=== PATIENT | male | born 1950 | race Caucasian/White ===

== ENCOUNTER 2023-08-15 09:22 | Emergency (ER) | payer SELFPAY ==
[~2023-08-15] VITALS: Ht 193 cm; Wt 54.8 kg
[~2023-08-15 09:22] MED LIST: BENZ0.5T36 PO; BENZ1TAB78 PO; CITA-311 PO; DIVA-81 PO; DIVA500T9 PO; NICO-687 TD; PALI234D IM; RISP4TAB49 PO
[2023-08-15 09:44] VITALS: BP 104/62; PULSE 73; RESP 16; TEMP 98.8; O2SAT 97
[2023-08-15] MEDS ORDERED: mupirocin 2% ointment 22GM TP STA (10:08)
[2023-08-16] MEDS ORDERED: DOXY100C77 PO (23:19)
[2023-08-16] MEDS ORDERED: CEPH250T PO (23:19)
== END 2023-08-15 10:37 | disposition home or self-care (01) ==
LOC: ER 09:22
DX: S60.921A Unspecified superficial injury of right hand, initial encounter (principal); J44.9 Chronic obstructive pulmonary disease, unspecified; F31.9 Bipolar disorder, unspecified; Z79.899 Other long term (current) drug therapy; X58.XXXA Exposure to other specified factors, initial encounter; Y93.89 Activity, other specified; Y92.89 Other specified places as the place of occurrence of the external cause; Y99.8 Other external cause status
CPT/HCPCS: 99282; A6449

== ENCOUNTER 2023-08-16 00:22 | Emergency (ER) | payer SELFPAY ==
[~2023-08-16] VITALS: Ht 172.7 cm; Wt 51.6 kg
[2023-08-16 00:39] VITALS: BP 129/64; PULSE 66; RESP 18; TEMP 98.8; O2SAT 97
[2023-08-16] MEDS ORDERED: DOXYCYCLINE 100MG CAPSULE PO ONE (01:20)
--- NOTE | 2023-08-16 01:28 | NUR ---
Blood draw performed on patient.
--- NOTE | 2023-08-16 01:38 | NUR ---
Bactroban from previous ER visit applied. Nonadherent dressing placed and secured with Koban.
[2023-08-16 02:20] LABS: SYPHILIS SCREENING TEST POC NEGATIVE (Negative)
[2023-08-16] MEDS ORDERED: DOXY100C77 PO (23:19)
[2023-08-16] MEDS ORDERED: CEPH250T PO (23:19)
== END 2023-08-16 03:30 | disposition home or self-care (01) ==
LOC: ER 00:23
DX: L03.012 Cellulitis of left finger (principal); J44.9 Chronic obstructive pulmonary disease, unspecified; F31.9 Bipolar disorder, unspecified; Z79.899 Other long term (current) drug therapy
CPT/HCPCS: 36415; 86592; 99283; A6258

== ENCOUNTER 2023-08-16 22:05 | Emergency (ER) | payer SELFPAY ==
[~2023-08-16] VITALS: Ht 172.7 cm; Wt 72.7 kg
[2023-08-16 22:24] VITALS: BP 142/79; PULSE 75; RESP 16; TEMP 98; O2SAT 98
--- NOTE | 2023-08-16 22:33 | NUR ---
REMOVED OLD BANDAGE, HAD HIM WASH HIS HANDS IN THE SINK. FRESH 4X4 AND COBAN APPLIED.
[2023-08-16] MEDS ORDERED: CEPH250T PO (23:19)
[2023-08-16] MEDS ORDERED: DOXYCYCLINE 100MG CAPSULE PO STA (23:19)
[2023-08-16] MEDS ORDERED: DOXY100C77 PO (23:19)
[2023-08-16] MEDS ORDERED: cephalexin 250mg capsule PO ONE (23:20)
== END 2023-08-16 23:37 | disposition home or self-care (01) ==
LOC: ER 22:05
DX: L98.498 Non-pressure chronic ulcer of skin of other sites with other specified severity (principal)
CPT/HCPCS: 99283

== ENCOUNTER 2023-08-18 05:18 | Emergency (ER) | payer MEDICARE ==
[~2023-08-18] VITALS: Ht 177.8 cm; Wt 73.6 kg
[~2023-08-18 05:18] MED LIST changes: +CEPH250T PO; +DOXY100C77 PO
--- NOTE | 2023-08-18 05:29 | NUR ---
CALLED FOR PATIENT IN LOBBY, NO ANSWER.
[2023-08-18 05:54] VITALS: BP 124/85; PULSE 65; RESP 16; TEMP 98.3; O2SAT 97
== END 2023-08-18 08:15 | disposition left against medical advice (07) ==
LOC: ER 05:18
DX: M25.532 Pain in left wrist (principal); Z53.21 Procedure and treatment not carried out due to patient leaving prior to being seen by health care provider
CPT/HCPCS: 99281

== ENCOUNTER 2023-08-18 09:09 | Emergency (ER) | payer SELFPAY ==
[~2023-08-18] VITALS: Ht 172.7 cm; Wt 72.7 kg
[2023-08-18 09:23] VITALS: BP 124/71; PULSE 95; RESP 19; O2SAT 99
== END 2023-08-18 17:29 | disposition left against medical advice (07) ==
LOC: ER 09:10
DX: L02.419 Cutaneous abscess of limb, unspecified (principal); Z53.21 Procedure and treatment not carried out due to patient leaving prior to being seen by health care provider
CPT/HCPCS: 99281

== ENCOUNTER 2023-09-14 14:24 | Emergency (ER) | payer SELFPAY ==
[~2023-09-14] VITALS: Ht 167.6 cm; Wt 56.2 kg
[~2023-09-14 14:24] MED LIST changes: -CEPH250T PO; -DOXY100C77 PO
[2023-09-14 14:34] VITALS: BP 143/69; PULSE 80; RESP 16; TEMP 97.8; O2SAT 98
[2023-09-14] MEDS ORDERED: bacitracin 15gm ointment TP ONE (14:35)
[2023-09-14] MEDS ORDERED: CEPH500C2 PO (14:38)
[2023-09-14] MEDS ORDERED: BACI1PAC7 TOP (14:39)
== END 2023-09-14 16:47 | disposition home or self-care (01) ==
LOC: ER 14:25
DX: L03.114 Cellulitis of left upper limb (principal); J44.9 Chronic obstructive pulmonary disease, unspecified; F31.9 Bipolar disorder, unspecified; Z79.899 Other long term (current) drug therapy
CPT/HCPCS: 99283

== ENCOUNTER 2023-09-15 00:43 | Emergency (ER) | payer MEDICARE ==
[~2023-09-15] VITALS: Ht 172.7 cm; Wt 67.2 kg
[~2023-09-15 00:43] MED LIST changes: +BACI1PAC7 TOP; +CEPH500C2 PO
[2023-09-15 00:44] VITALS: BP 130/76; PULSE 65; RESP 16; TEMP 97.8; O2SAT 100
== END 2023-09-15 02:54 | disposition left against medical advice (07) ==
LOC: ER 00:44
DX: M79.89 Other specified soft tissue disorders (principal); Z53.21 Procedure and treatment not carried out due to patient leaving prior to being seen by health care provider
CPT/HCPCS: 99281

== ENCOUNTER 2023-11-04 16:38 | Emergency (ER) | payer OTHER, MEDICARE ==
[~2023-11-04] VITALS: Ht 172.7 cm; Wt 73.5 kg
[~2023-11-04 16:38] MED LIST changes: -BACI1PAC7 TOP; -CEPH500C2 PO
[2023-11-04 20:07] VITALS: BP 148/80; PULSE 74; RESP 16; TEMP 98.5; O2SAT 100
== END 2023-11-04 20:10 | disposition home or self-care (01) ==
LOC: ER 16:38
DX: M79.642 Pain in left hand (principal); M19.90 Unspecified osteoarthritis, unspecified site; J44.9 Chronic obstructive pulmonary disease, unspecified; Z56.0 Unemployment, unspecified; Z59.00 Homelessness unspecified; Z79.899 Other long term (current) drug therapy
CPT/HCPCS: 29125; 73130; 99283

== ENCOUNTER 2023-11-17 14:35 | Emergency (ER) | payer OTHER, MEDICARE | END 2023-11-17 18:35 | disposition left against medical advice (07) | LOC: ER 14:36 | DX: R21 Rash and other nonspecific skin eruption (principal); Z53.21 Procedure and treatment not carried out due to patient leaving prior to being seen by health care provider ==

== ENCOUNTER 2023-11-19 08:55 | Emergency (ER) | payer MEDICARE, OTHER ==
[~2023-11-19] VITALS: Ht 172.7 cm; Wt 71.6 kg
[2023-11-19 09:01] VITALS: BP 141/69; PULSE 94; RESP 18; O2SAT 96
[2023-11-19] MEDS ORDERED: SULF1TAB49 PO (09:07)
[2023-11-19] MEDS ORDERED: CEPH-585 PO (09:07)
[2023-11-19 09:14] VITALS: TEMP 98.5
== END 2023-11-19 09:18 | disposition home or self-care (01) ==
LOC: ER 08:55
DX: L03.114 Cellulitis of left upper limb (principal); J44.9 Chronic obstructive pulmonary disease, unspecified; Z56.0 Unemployment, unspecified; Z59.00 Homelessness unspecified; Z79.899 Other long term (current) drug therapy; Z79.2 Long term (current) use of antibiotics
CPT/HCPCS: 99283

== ENCOUNTER 2023-11-21 11:51 | Emergency (ER) | payer OTHER ==
[~2023-11-21 11:51] MED LIST changes: +CEPH-585 PO; +SULF1TAB49 PO
[2023-11-23] MEDS ORDERED: ALBU6.7H14 INH ×3 (16:21→23:25)
== END 2023-11-21 14:08 | disposition left against medical advice (07) ==
LOC: ER 11:52
DX: R05.9 Cough, unspecified (principal); Z53.21 Procedure and treatment not carried out due to patient leaving prior to being seen by health care provider

== ENCOUNTER 2023-11-23 21:56 | Emergency (ER) | payer OTHER, MEDICARE ==
[~2023-11-23] VITALS: Ht 172.7 cm; Wt 70.7 kg
[~2023-11-23 21:56] MED LIST changes: +ALBU6.7H14 INH
[2023-11-23 22:00] VITALS: BP 135/75; TEMP 98.3
[2023-11-23] MEDS ORDERED: ipratropium/albuterol 3ml nebule NEB ONE (23:05)
[2023-11-23 23:16] VITALS: PULSE 74; RESP 18; O2SAT 90
[2023-11-23 23:25] VITALS: PULSE 77; RESP 18; O2SAT 94
[2023-11-23] MEDS ORDERED: ALBU6.7H14 INH (23:25)
[2023-11-23] MEDS ORDERED: SULF1TAB49 PO (23:25)
[2023-11-23] MEDS ORDERED: CEPH-585 PO (23:25)
[2023-11-24] MEDS ORDERED: PRED20TA PO (14:55)
[2023-11-24] MEDS ORDERED: AMOX-117 PO (14:55)
[2023-11-24] MEDS ORDERED: ALBU6.7H14 INH (14:55)
== END 2023-11-23 23:51 | disposition home or self-care (01) ==
LOC: ER 21:57
DX: J06.9 Acute upper respiratory infection, unspecified (principal); R05.9 Cough, unspecified; J44.9 Chronic obstructive pulmonary disease, unspecified; F31.9 Bipolar disorder, unspecified; Z79.899 Other long term (current) drug therapy; Z79.2 Long term (current) use of antibiotics; Z79.1 Long term (current) use of non-steroidal anti-inflammatories (NSAID)
CPT/HCPCS: 94640; 94760; 99283

== ENCOUNTER 2023-11-24 13:30 | Emergency (ER) | payer OTHER, MEDICARE ==
[~2023-11-24] VITALS: Ht 165.1 cm; Wt 69.1 kg
[2023-11-24 14:17] VITALS: BP 140/69; PULSE 84; RESP 19; TEMP 98.1; O2SAT 95
[2023-11-24] MEDS ORDERED: PRED20TA PO (14:55)
[2023-11-24] MEDS ORDERED: ALBU6.7H14 INH (14:55)
[2023-11-24] MEDS ORDERED: AMOX-117 PO (14:55)
== END 2023-11-24 15:57 | disposition left against medical advice (07) ==
LOC: ER 13:31
DX: J20.9 Acute bronchitis, unspecified (principal); J44.9 Chronic obstructive pulmonary disease, unspecified; F31.9 Bipolar disorder, unspecified; Z79.899 Other long term (current) drug therapy; Z79.2 Long term (current) use of antibiotics
CPT/HCPCS: 99283

== ENCOUNTER 2023-11-24 20:07 | Emergency (ER) | payer OTHER, MEDICARE ==
[~2023-11-24] VITALS: Ht 172.7 cm; Wt 72.7 kg
[~2023-11-24 20:07] MED LIST changes: +AMOX-117 PO; +PRED20TA PO
[2023-11-24 20:22] VITALS: BP 147/86; PULSE 95; RESP 14; TEMP 98.4; O2SAT 94
== END 2023-11-24 21:33 | disposition left against medical advice (07) ==
LOC: ER 20:07
DX: M79.642 Pain in left hand (principal); Z53.21 Procedure and treatment not carried out due to patient leaving prior to being seen by health care provider
CPT/HCPCS: 99281

== ENCOUNTER 2023-12-02 05:10 | Emergency (ER) | payer MEDICARE, OTHER ==
[~2023-12-02] VITALS: Ht 172.7 cm; Wt 72.7 kg
[~2023-12-02 05:10] MED LIST changes: -PRED20TA PO
[2023-12-02 05:20] VITALS: BP 157/83; PULSE 68; RESP 18; TEMP 98; O2SAT 98
== END 2023-12-02 08:18 | disposition left against medical advice (07) ==
LOC: ER 05:10
DX: R05.9 Cough, unspecified (principal); R09.81 Nasal congestion; Z53.21 Procedure and treatment not carried out due to patient leaving prior to being seen by health care provider
CPT/HCPCS: 71046; 99281

== ENCOUNTER 2023-12-02 13:15 | Emergency (ER) | payer OTHER ==
[~2023-12-02] VITALS: Ht 172.7 cm; Wt 72.7 kg
[2023-12-02 13:19] VITALS: BP 114/86; PULSE 95; RESP 16; TEMP 97.3; O2SAT 97
== END 2023-12-02 17:24 | disposition left against medical advice (07) ==
LOC: ER 13:16
DX: J00 Acute nasopharyngitis [common cold] (principal); Z53.21 Procedure and treatment not carried out due to patient leaving prior to being seen by health care provider
CPT/HCPCS: 99281

== ENCOUNTER 2023-12-24 05:44 | Emergency (ER) | payer OTHER ==
[~2023-12-24] VITALS: Ht 172.7 cm; Wt 72.7 kg
[~2023-12-24 05:44] MED LIST changes: -AMOX-117 PO
[2023-12-24 05:46] VITALS: BP 107/66; PULSE 92; RESP 16; O2SAT 98
[2023-12-24 09:36] VITALS: TEMP 97.7
== END 2023-12-24 09:38 | disposition left against medical advice (07) ==
LOC: ER 05:44
DX: R05.9 Cough, unspecified (principal); J00 Acute nasopharyngitis [common cold]; R09.81 Nasal congestion; Z53.21 Procedure and treatment not carried out due to patient leaving prior to being seen by health care provider
CPT/HCPCS: 99281

== ENCOUNTER 2023-12-31 06:26 | Emergency (ER) | payer OTHER ==
[~2023-12-31] VITALS: Ht 172.7 cm; Wt 72.7 kg
[2023-12-31 06:31] VITALS: BP 147/90; PULSE 61; TEMP 97.8; O2SAT 98
[2023-12-31 06:40] VITALS: RESP 16
[2023-12-31] MEDS: oxymetazoline 15 ML nasal spray NS ONE (06:57)
== END 2023-12-31 07:19 | disposition home or self-care (01) ==
LOC: ER 06:27
DX: J06.9 Acute upper respiratory infection, unspecified (principal); F31.9 Bipolar disorder, unspecified; F20.9 Schizophrenia, unspecified; Z79.899 Other long term (current) drug therapy; Z79.1 Long term (current) use of non-steroidal anti-inflammatories (NSAID); Z59.00 Homelessness unspecified; Z56.0 Unemployment, unspecified
CPT/HCPCS: 99282

== ENCOUNTER 2024-01-06 03:44 | Emergency (ER) | payer OTHER, MEDICARE ==
[~2024-01-06] VITALS: Ht 172.7 cm; Wt 68.2 kg
[2024-01-06 04:02] VITALS: BP 152/87; PULSE 72; RESP 16; TEMP 97.8; O2SAT 99
[2024-01-06] MEDS ORDERED: OXYM30SP26 BOTHNARES (04:18)
[2024-01-06] MEDS ORDERED: ROBDML PO (04:18)
== END 2024-01-06 04:34 | disposition home or self-care (01) ==
LOC: ER 03:45
DX: J06.9 Acute upper respiratory infection, unspecified (principal); J44.9 Chronic obstructive pulmonary disease, unspecified; Z79.899 Other long term (current) drug therapy; Z79.2 Long term (current) use of antibiotics
CPT/HCPCS: 99282

== ENCOUNTER 2024-01-11 16:45 | Emergency (ER) | payer OTHER, MEDICARE ==
[~2024-01-11] VITALS: Ht 172.7 cm; Wt 70.3 kg
[~2024-01-11 16:45] MED LIST changes: +OXYM30SP26 BOTHNARES; +ROBDML PO
[2024-01-11 16:54] VITALS: BP 136/63; PULSE 81; RESP 16; TEMP 98.4; O2SAT 97
== END 2024-01-11 17:39 | disposition left against medical advice (07) ==
LOC: ER 16:46
DX: R21 Rash and other nonspecific skin eruption (principal); Z53.21 Procedure and treatment not carried out due to patient leaving prior to being seen by health care provider
CPT/HCPCS: 99281

== ENCOUNTER 2024-01-28 15:50 | Emergency (ER) | payer OTHER, MEDICARE ==
[~2024-01-28] VITALS: Ht 175.3 cm; Wt 63.6 kg
[~2024-01-28 15:50] MED LIST changes: -ROBDML PO
[2024-01-28 16:12] VITALS: BP 149/74; TEMP 97.8
[2024-01-28] MEDS ORDERED: CEFD300C3 PO (16:45)
[2024-01-28 17:54] VITALS: PULSE 71; RESP 16; O2SAT 99
== END 2024-01-28 17:35 | disposition home or self-care (01) ==
LOC: ER 15:50
DX: J20.9 Acute bronchitis, unspecified (principal); J44.9 Chronic obstructive pulmonary disease, unspecified; F31.9 Bipolar disorder, unspecified; F20.9 Schizophrenia, unspecified; Z85.9 Personal history of malignant neoplasm, unspecified
CPT/HCPCS: 71045; 99283

== ENCOUNTER 2024-02-17 19:51 | Emergency (ER) | payer OTHER, MEDICARE ==
[~2024-02-17] VITALS: Ht 172.7 cm; Wt 72.0 kg
[2024-02-17 20:08] VITALS: BP 133/75; PULSE 73; RESP 16; TEMP 98.2; O2SAT 99
== END 2024-02-17 21:15 | disposition left against medical advice (07) ==
LOC: ER 19:52
DX: R05.9 Cough, unspecified (principal); R09.81 Nasal congestion; Z53.21 Procedure and treatment not carried out due to patient leaving prior to being seen by health care provider
CPT/HCPCS: 99281

== ENCOUNTER 2024-03-06 13:54 | Emergency (ER) | payer OTHER, MEDICARE ==
[~2024-03-06] VITALS: Ht 172.7 cm; Wt 72.7 kg
[2024-03-06 13:57] VITALS: BP 128/80; PULSE 68; RESP 16; TEMP 98.6; O2SAT 99
== END 2024-03-06 15:34 | disposition left against medical advice (07) ==
LOC: ER 13:54
DX: R05.9 Cough, unspecified (principal); J44.9 Chronic obstructive pulmonary disease, unspecified; F31.9 Bipolar disorder, unspecified; Z79.899 Other long term (current) drug therapy; Z79.2 Long term (current) use of antibiotics
CPT/HCPCS: 99281

== ENCOUNTER 2024-04-01 14:06 | Emergency (ER) | payer MEDICARE, OTHER ==
[~2024-04-01] VITALS: Ht 172.7 cm; Wt 72.0 kg
[2024-04-01 14:42] VITALS: BP 140/80; PULSE 80; RESP 16; TEMP 99.7; O2SAT 98
[2024-04-01] MEDS ORDERED: PERM60CR19 TOP (15:32)
[2024-04-01] MEDS ORDERED: ALBU8HFA INH (15:32)
[2024-04-01] MEDS ORDERED: AZIT250T83 PO (15:32)
== END 2024-04-01 15:43 | disposition home or self-care (01) ==
LOC: ER 14:07
DX: J06.9 Acute upper respiratory infection, unspecified (principal); B85.2 Pediculosis, unspecified; J44.9 Chronic obstructive pulmonary disease, unspecified; F20.9 Schizophrenia, unspecified; F31.9 Bipolar disorder, unspecified; Z60.2 Problems related to living alone; Z59.00 Homelessness unspecified; Z85.9 Personal history of malignant neoplasm, unspecified
CPT/HCPCS: 71045; 99283

== ENCOUNTER → 2024-04-09 | Emergency (ER) | payer OTHER ==
[~2024-04-09] VITALS: Ht 172.7 cm; Wt 72.7 kg
[~2024-04-09] MED LIST changes: +ALBU8HFA INH; +PERM60CR19 TOP
[2024-04-09 12:02] VITALS: BP 135/73; PULSE 78; RESP 16; TEMP 98.9; O2SAT 98
== END | disposition left against medical advice (07) ==
LOC: ER 11:56
DX: R09.81 Nasal congestion (principal); R05.9 Cough, unspecified; J00 Acute nasopharyngitis [common cold]; Z53.21 Procedure and treatment not carried out due to patient leaving prior to being seen by health care provider
CPT/HCPCS: 71045

== ENCOUNTER 2024-04-27 20:38 | Emergency (ER) | payer OTHER, MEDICARE ==
[~2024-04-27] VITALS: Ht 172.7 cm; Wt 72.7 kg
[2024-04-27] MEDS ORDERED: CEFD300C3 PO (21:26)
[2024-04-27 21:38] VITALS: BP 122/74; PULSE 80; RESP 16; TEMP 98.2; O2SAT 96
== END 2024-04-27 21:40 | disposition home or self-care (01) ==
LOC: ER 20:39
DX: J20.9 Acute bronchitis, unspecified (principal); J44.9 Chronic obstructive pulmonary disease, unspecified; F31.9 Bipolar disorder, unspecified; F20.9 Schizophrenia, unspecified; Z85.89 Personal history of malignant neoplasm of other organs and systems; Z56.0 Unemployment, unspecified; Z60.2 Problems related to living alone; Z59.00 Homelessness unspecified; Z79.899 Other long term (current) drug therapy; Z79.2 Long term (current) use of antibiotics
CPT/HCPCS: 99283

== ENCOUNTER 2024-04-30 16:20 | Emergency (ER) | payer OTHER, MEDICARE ==
[~2024-04-30] VITALS: Ht 172.7 cm; Wt 72.7 kg
[~2024-04-30 16:20] MED LIST changes: +CEFD300C3 PO
[2024-04-30] MEDS ORDERED: GUAI600T45 PO (16:55)
[2024-04-30 17:18] VITALS: BP 139/86; PULSE 83; RESP 16; TEMP 98.1; O2SAT 97
== END 2024-04-30 17:19 | disposition home or self-care (01) ==
LOC: ER 16:21
DX: R05.9 Cough, unspecified (principal); R09.89 Other specified symptoms and signs involving the circulatory and respiratory systems; J44.9 Chronic obstructive pulmonary disease, unspecified; F31.9 Bipolar disorder, unspecified; F20.9 Schizophrenia, unspecified; Z85.89 Personal history of malignant neoplasm of other organs and systems; Z60.2 Problems related to living alone; Z59.00 Homelessness unspecified; Z56.0 Unemployment, unspecified; Z79.899 Other long term (current) drug therapy; Z79.2 Long term (current) use of antibiotics
CPT/HCPCS: 99282

== ENCOUNTER 2024-05-03 20:10 | Emergency (ER) | payer OTHER, MEDICARE ==
[~2024-05-03] VITALS: Ht 172.7 cm; Wt 72.7 kg
[~2024-05-03 20:10] MED LIST changes: -ALBU8HFA INH; +GUAI600T45 PO; -PERM60CR19 TOP
[2024-05-03 20:30] VITALS: BP 142/87; PULSE 82; RESP 17; TEMP 98.2; O2SAT 97
== END 2024-05-03 21:59 | disposition left against medical advice (07) ==
LOC: ER 20:11
DX: R50.9 Fever, unspecified (principal); R51.9 Headache, unspecified; Z53.21 Procedure and treatment not carried out due to patient leaving prior to being seen by health care provider

== ENCOUNTER 2024-05-04 21:39 | Emergency (ER) | payer OTHER, MEDICARE ==
[~2024-05-04] VITALS: Ht 172.7 cm; Wt 72.0 kg
[2024-05-04 21:49] VITALS: BP 133/83; PULSE 86; RESP 16; TEMP 99.2; O2SAT 96
== END 2024-05-04 23:28 | disposition left against medical advice (07) ==
LOC: ER 21:39
DX: R10.84 Generalized abdominal pain (principal); R11.0 Nausea; Z53.21 Procedure and treatment not carried out due to patient leaving prior to being seen by health care provider

== ENCOUNTER 2024-05-06 11:06 | Emergency (ER) | payer OTHER, MEDICARE ==
[~2024-05-06] VITALS: Ht 172.7 cm; Wt 72.7 kg
[2024-05-06 11:08] VITALS: BP 134/82; PULSE 88; RESP 16; TEMP 98.3; O2SAT 97
== END 2024-05-06 12:42 | disposition left against medical advice (07) ==
LOC: ER 11:07
DX: R09.89 Other specified symptoms and signs involving the circulatory and respiratory systems (principal); Z53.21 Procedure and treatment not carried out due to patient leaving prior to being seen by health care provider

== ENCOUNTER 2024-05-11 12:29 | Emergency (ER) | payer MEDICARE, OTHER ==
[~2024-05-11 12:29] MED LIST changes: -CEFD300C3 PO
== END 2024-05-11 13:43 | disposition left against medical advice (07) ==
LOC: ER 12:30
DX: R09.81 Nasal congestion (principal); Z53.21 Procedure and treatment not carried out due to patient leaving prior to being seen by health care provider

== ENCOUNTER 2024-06-10 01:50 | Emergency (ER) | payer OTHER, MEDICARE ==
[~2024-06-10] VITALS: Ht 172.7 cm; Wt 58.1 kg
[2024-06-10 01:51] VITALS: TEMP 98.2
[2024-06-10 03:22] VITALS: BP 128/78; PULSE 89; RESP 14; O2SAT 98
== END 2024-06-10 03:25 | disposition home or self-care (01) ==
LOC: ER 01:52
DX: Z00.00 Encounter for general adult medical examination without abnormal findings (principal); J44.9 Chronic obstructive pulmonary disease, unspecified; F20.9 Schizophrenia, unspecified; F31.9 Bipolar disorder, unspecified; Z60.2 Problems related to living alone; Z59.00 Homelessness unspecified; Z56.0 Unemployment, unspecified; Z85.89 Personal history of malignant neoplasm of other organs and systems; Z79.899 Other long term (current) drug therapy
CPT/HCPCS: 99281

== ENCOUNTER 2024-06-10 17:23 | Emergency (ER) | payer OTHER, MEDICARE ==
[~2024-06-10] VITALS: Ht 172.7 cm; Wt 59.9 kg
[2024-06-10 17:42] VITALS: BP 122/76; PULSE 78; RESP 16; TEMP 98.9; O2SAT 95
== END 2024-06-10 18:07 | disposition home or self-care (01) ==
LOC: ER 17:24
DX: Z00.00 Encounter for general adult medical examination without abnormal findings (principal); J44.9 Chronic obstructive pulmonary disease, unspecified; F20.9 Schizophrenia, unspecified; F31.9 Bipolar disorder, unspecified; Z59.00 Homelessness unspecified; Z56.0 Unemployment, unspecified; Z79.899 Other long term (current) drug therapy; Z79.2 Long term (current) use of antibiotics
CPT/HCPCS: 99281

== ENCOUNTER 2024-06-24 14:04 | Emergency (ER) | payer OTHER, MEDICARE ==
[~2024-06-24] VITALS: Ht 172.7 cm; Wt 63.3 kg
[2024-06-24 17:04] VITALS: BP 118/66; PULSE 70; RESP 14; TEMP 97.7; O2SAT 96
== END 2024-06-24 17:09 | disposition home or self-care (01) ==
LOC: ER 14:05
DX: M79.671 Pain in right foot (principal); J44.9 Chronic obstructive pulmonary disease, unspecified; F31.9 Bipolar disorder, unspecified; F20.9 Schizophrenia, unspecified; Z79.899 Other long term (current) drug therapy; Z79.2 Long term (current) use of antibiotics; Z59.00 Homelessness unspecified; Z56.0 Unemployment, unspecified; Z60.2 Problems related to living alone; Z85.89 Personal history of malignant neoplasm of other organs and systems
CPT/HCPCS: 99281

== ENCOUNTER 2024-08-21 13:12 | Emergency (ER) | payer OTHER, MEDICARE ==
[~2024-08-21] VITALS: Ht 172.7 cm; Wt 72.7 kg
[2024-08-21 13:26] VITALS: BP 117/65; PULSE 100; RESP 16; TEMP 98; O2SAT 99
== END 2024-08-21 15:26 | disposition left against medical advice (07) ==
LOC: ER 13:13
DX: S60.522A Blister (nonthermal) of left hand, initial encounter (principal); J44.9 Chronic obstructive pulmonary disease, unspecified; F31.9 Bipolar disorder, unspecified; F20.9 Schizophrenia, unspecified; Z79.2 Long term (current) use of antibiotics; Z79.899 Other long term (current) drug therapy; Z60.2 Problems related to living alone; Z56.0 Unemployment, unspecified; Z59.00 Homelessness unspecified; S60.521A Blister (nonthermal) of right hand, initial encounter; X58.XXXA Exposure to other specified factors, initial encounter; Y93.89 Activity, other specified; Y92.89 Other specified places as the place of occurrence of the external cause; Y99.8 Other external cause status
CPT/HCPCS: 99281

== ENCOUNTER 2024-08-22 22:39 | Emergency (ER) | payer OTHER, MEDICARE ==
[~2024-08-22] VITALS: Ht 172.7 cm; Wt 64.0 kg
[2024-08-22 23:40] VITALS: BP 136/76; PULSE 84; RESP 18; TEMP 98.2; O2SAT 96
== END 2024-08-22 23:43 | disposition home or self-care (01) ==
LOC: ER 22:40
DX: S60.522A Blister (nonthermal) of left hand, initial encounter (principal); S60.521A Blister (nonthermal) of right hand, initial encounter; J44.9 Chronic obstructive pulmonary disease, unspecified; F20.9 Schizophrenia, unspecified; F31.9 Bipolar disorder, unspecified; Z60.2 Problems related to living alone; Z59.00 Homelessness unspecified; Z56.0 Unemployment, unspecified; Z79.2 Long term (current) use of antibiotics; Z79.899 Other long term (current) drug therapy; X58.XXXA Exposure to other specified factors, initial encounter; Y93.89 Activity, other specified; Y92.89 Other specified places as the place of occurrence of the external cause; Y99.8 Other external cause status
CPT/HCPCS: 99281

== ENCOUNTER 2024-08-25 02:00 | Emergency (ER) | payer OTHER, MEDICARE ==
[~2024-08-25] VITALS: Ht 172.7 cm; Wt 63.8 kg
[2024-08-25 03:13] LABS: BASOPHILS # (AUTO) 0.1 X10'3 (0-0.2); BASOPHILS % (AUTO) 1.2 % (0-1); EOSINOPHILS # (AUTO) 0.3 X10'3 (0-0.9); EOSINOPHILS % (AUTO) 4.1 % (0-6); HEMATOCRIT 37.2 % (42.0-52.0); HEMOGLOBIN 12.6 g/dl (14.0-17.9); LYMPHOCYTES # (AUTO) 1.2 X10'3 (1.1-4.8); MEAN CORPUSCULAR HEMOGLOBIN 33.2 PG (27.0-31.0); MEAN CORPUSCULAR HGB CONC 33.9 g/dL (33.0-36.5); MEAN CORPUSCULAR VOLUME 97.9 FL (78-98); MEAN PLATELET VOLUME 6.1 FL (7.4-10.4); MONOCYTES # (AUTO) 0.8 X10'3 (0-0.9); MONOCYTES % (AUTO) 10.2 % (2-12); NEUTROPHILS # (AUTO) 5.3 X10'3 (1.8-7.7); NEUTROPHILS % (AUTO) 68.5 % (42-75); PLATELET COUNT 389 X10'3 (140-440); RED CELL DISTRIBUTION WIDTH 14.2 % (11.5-14.5); WHITE BLOOD COUNT 7.7 X10'3 (4.5-11.0)
[2024-08-25 03:24] LABS: ALBUMIN 3.1 G/DL (3.4-5.0); ANION GAP 6 (8-16); BLOOD UREA NITROGEN 11 MG/DL (7-18); BUN/CREATININE RATIO 13.6 (10.0-20.0); CALCIUM 9.3 MG/DL (8.5-10.1); CHLORIDE 102 MMOL/L (99-107); CREATININE 0.81 MG/DL (0.60-1.10); GLUCOSE 114 MG/DL (70-104); POTASSIUM 3.7 MMOL/L (3.5-5.1); SODIUM 137 MMOL/L (135-145); TOTAL CARBON DIOXIDE 29.2 MMOL/L (24-32); eCRCL 74 ML/MIN; eGFR > 90 ML/MIN
[2024-08-25] MEDS: acetaminophen 325mg tablet PO ONE (05:01)
[2024-08-25 05:12] VITALS: BP 100/78; PULSE 78; RESP 15; TEMP 98.1; O2SAT 100
== END 2024-08-25 05:26 | disposition home or self-care (01) ==
LOC: ER 02:01
DX: S92.321A Displaced fracture of second metatarsal bone, right foot, initial encounter for closed fracture (principal); J44.9 Chronic obstructive pulmonary disease, unspecified; F31.9 Bipolar disorder, unspecified; F20.9 Schizophrenia, unspecified; C7A.00 Malignant carcinoid tumor of unspecified site; Z79.899 Other long term (current) drug therapy; Z79.2 Long term (current) use of antibiotics; Z79.1 Long term (current) use of non-steroidal anti-inflammatories (NSAID); X58.XXXA Exposure to other specified factors, initial encounter; Y93.89 Activity, other specified; Y92.89 Other specified places as the place of occurrence of the external cause; Y99.8 Other external cause status
CPT/HCPCS: 36415; 73630; 80048; 83605; 85025; 99285

== ENCOUNTER 2024-08-30 21:51 | Emergency (ER) | payer OTHER, MEDICARE ==
[~2024-08-30] VITALS: Ht 172.7 cm; Wt 56.8 kg
[2024-08-30 22:20] VITALS: TEMP 98.2
[2024-08-30] MEDS: acetaminophen 325mg tablet PO ONE (22:27)
[2024-08-30 23:10] VITALS: BP 129/75; PULSE 68; RESP 16; O2SAT 100
== END 2024-08-30 23:13 | disposition home or self-care (01) ==
LOC: ER 21:52
DX: S92.321D Displaced fracture of second metatarsal bone, right foot, subsequent encounter for fracture with routine healing (principal); F20.9 Schizophrenia, unspecified; F31.9 Bipolar disorder, unspecified; C7A.00 Malignant carcinoid tumor of unspecified site; J44.9 Chronic obstructive pulmonary disease, unspecified; Z79.899 Other long term (current) drug therapy; Z79.2 Long term (current) use of antibiotics; Z79.1 Long term (current) use of non-steroidal anti-inflammatories (NSAID); Z59.00 Homelessness unspecified; X58.XXXD Exposure to other specified factors, subsequent encounter
CPT/HCPCS: 99282

== ENCOUNTER 2024-09-19 16:13 | Emergency (ER) | payer OTHER, MEDICARE ==
[~2024-09-19] VITALS: Ht 172.7 cm; Wt 65.6 kg
[~2024-09-19 16:13] MED LIST changes: -BENZ0.5T36 PO; +BENZ0.5T52 PO
[2024-09-19 18:20] VITALS: BP 128/60; PULSE 98; RESP 16; TEMP 99.1; O2SAT 99
== END 2024-09-19 18:22 | disposition home or self-care (01) ==
LOC: ER 16:13
DX: M25.571 Pain in right ankle and joints of right foot (principal); J44.9 Chronic obstructive pulmonary disease, unspecified; F31.9 Bipolar disorder, unspecified; F20.9 Schizophrenia, unspecified; Z98.890 Other specified postprocedural states; Z79.899 Other long term (current) drug therapy; X50.1XXA Overexertion from prolonged static or awkward postures, initial encounter; Y93.89 Activity, other specified; Y92.89 Other specified places as the place of occurrence of the external cause; Y99.8 Other external cause status
CPT/HCPCS: 29515; 73610; 99284

== ENCOUNTER 2024-10-14 06:13 | Emergency (ER) | payer OTHER, MEDICARE ==
[~2024-10-14] VITALS: Ht 172.7 cm; Wt 72.7 kg
[2024-10-14 06:27] VITALS: BP 140/82; PULSE 67; RESP 18; O2SAT 99
[2024-10-14 08:15] VITALS: TEMP 98.3
== END 2024-10-14 08:18 | disposition home or self-care (01) ==
LOC: ER 06:14
DX: S82.52XD Displaced fracture of medial malleolus of left tibia, subsequent encounter for closed fracture with routine healing (principal); S82.832D Other fracture of upper and lower end of left fibula, subsequent encounter for closed fracture with routine healing; J44.9 Chronic obstructive pulmonary disease, unspecified; F31.9 Bipolar disorder, unspecified; F20.9 Schizophrenia, unspecified; X58.XXXD Exposure to other specified factors, subsequent encounter
CPT/HCPCS: 73610; 99283

== ENCOUNTER 2024-10-16 01:16 | Emergency (ER) | payer OTHER, MEDICARE, MEDICAID ==
[~2024-10-16] VITALS: Ht 172.7 cm; Wt 72.7 kg
[2024-10-16 01:22] VITALS: BP 163/88; PULSE 98; RESP 18; O2SAT 99
[2024-10-16] MEDS: bacitracin 15gm ointment TP ONE (03:13)
[2024-10-16] MEDS: TETanus/Pertussis (Acell)/Diphther VAC/PF (Tdap-Adult) 0.5ml syringe IMVAC ONE (03:14)
[2024-10-16 04:08] VITALS: TEMP 98.4
== END 2024-10-16 04:12 | disposition home or self-care (01) ==
LOC: ER 01:16
DX: S01.81XA Laceration without foreign body of other part of head, initial encounter (principal); J44.9 Chronic obstructive pulmonary disease, unspecified; F31.9 Bipolar disorder, unspecified; F20.9 Schizophrenia, unspecified; Z56.0 Unemployment, unspecified; Z59.00 Homelessness unspecified; Z60.2 Problems related to living alone; Z85.89 Personal history of malignant neoplasm of other organs and systems; W22.8XXA Striking against or struck by other objects, initial encounter; Y93.89 Activity, other specified; Y92.89 Other specified places as the place of occurrence of the external cause; Y99.8 Other external cause status
CPT/HCPCS: 70450; 90471; 90715; 99285

== ENCOUNTER 2024-10-25 03:03 | Emergency (ER) | payer OTHER, MEDICARE, MEDICAID ==
[~2024-10-25] VITALS: Ht 172.7 cm; Wt 72.7 kg
[2024-10-25 03:12] VITALS: BP 134/72; PULSE 86; RESP 16; TEMP 98.9; O2SAT 97
== END 2024-10-25 05:22 | disposition left against medical advice (07) ==
LOC: ER 03:03
DX: M79.10 Myalgia, unspecified site (principal); Z53.21 Procedure and treatment not carried out due to patient leaving prior to being seen by health care provider

== ENCOUNTER 2024-11-07 16:50 | Emergency (ER) | payer OTHER, MEDICARE, MEDICAID | END 2024-11-07 17:42 | disposition left against medical advice (07) | LOC: ER 16:51 | DX: Z53.21 Procedure and treatment not carried out due to patient leaving prior to being seen by health care provider (principal) ==

== ENCOUNTER 2024-11-13 10:31 | Emergency (ER) | payer OTHER, MEDICARE, MEDICAID ==
[~2024-11-13] VITALS: Ht 172.7 cm; Wt 68.2 kg
[2024-11-13 13:01] VITALS: BP 151/91; PULSE 74; RESP 16; TEMP 98; O2SAT 99
[2024-11-13] MEDS ORDERED: KEN0.1O TP (22:02)
== END 2024-11-13 13:03 | disposition home or self-care (01) ==
LOC: ER 10:31
DX: M25.572 Pain in left ankle and joints of left foot (principal); M79.672 Pain in left foot; J44.9 Chronic obstructive pulmonary disease, unspecified; F31.9 Bipolar disorder, unspecified; F20.9 Schizophrenia, unspecified; Z85.89 Personal history of malignant neoplasm of other organs and systems; Z56.0 Unemployment, unspecified; Z59.00 Homelessness unspecified; Z60.2 Problems related to living alone; Z79.899 Other long term (current) drug therapy; W22.8XXA Striking against or struck by other objects, initial encounter; Y93.89 Activity, other specified; Y92.89 Other specified places as the place of occurrence of the external cause; Y99.8 Other external cause status
CPT/HCPCS: 73610; 99283

== ENCOUNTER 2024-11-13 19:55 | Emergency (ER) | payer OTHER, MEDICARE, MEDICAID ==
[~2024-11-13] VITALS: Ht 172.7 cm; Wt 70.4 kg
[2024-11-13 19:59] VITALS: BP 137/82; PULSE 85; RESP 17; TEMP 98.9; O2SAT 99
[2024-11-13] MEDS ORDERED: KEN0.1O TP (22:02)
== END 2024-11-13 22:11 | disposition home or self-care (01) ==
LOC: ER 19:56
DX: L30.9 Dermatitis, unspecified (principal); J44.9 Chronic obstructive pulmonary disease, unspecified; F31.9 Bipolar disorder, unspecified; F20.9 Schizophrenia, unspecified; Z59.00 Homelessness unspecified; Z85.89 Personal history of malignant neoplasm of other organs and systems; Z60.2 Problems related to living alone; Z56.0 Unemployment, unspecified; Z79.899 Other long term (current) drug therapy
CPT/HCPCS: 99283

== ENCOUNTER 2024-11-20 11:26 | Emergency (ER) | payer OTHER, MEDICAID, MEDICARE ==
[~2024-11-20] VITALS: Ht 172.7 cm; Wt 72.7 kg
[~2024-11-20 11:26] MED LIST changes: +KEN0.1O TP
[2024-11-20 11:39] VITALS: PULSE 100; RESP 16; TEMP 98; O2SAT 99
== END 2024-11-20 12:47 | disposition home or self-care (01) ==
LOC: ER 11:27
DX: S00.06XA Insect bite (nonvenomous) of scalp, initial encounter (principal); J44.9 Chronic obstructive pulmonary disease, unspecified; F31.9 Bipolar disorder, unspecified; F20.9 Schizophrenia, unspecified; Z56.0 Unemployment, unspecified; Z59.00 Homelessness unspecified; Z60.2 Problems related to living alone; W57.XXXA Bitten or stung by nonvenomous insect and other nonvenomous arthropods, initial encounter; Y93.89 Activity, other specified; Y92.89 Other specified places as the place of occurrence of the external cause; Y99.8 Other external cause status
CPT/HCPCS: 99281

== ENCOUNTER 2024-12-03 10:17 | Emergency (ER) | payer OTHER, MEDICARE, MEDICAID ==
[~2024-12-03] VITALS: Ht 172.7 cm; Wt 72.7 kg
[2024-12-03 11:10] VITALS: BP 145/77; PULSE 71; RESP 16; O2SAT 99
[2024-12-03 12:12] VITALS: TEMP 97
== END 2024-12-03 12:19 | disposition left against medical advice (07) ==
LOC: ER 10:18
DX: M79.673 Pain in unspecified foot (principal); Z53.21 Procedure and treatment not carried out due to patient leaving prior to being seen by health care provider

== ENCOUNTER 2024-12-03 23:23 | Emergency (ER) | payer OTHER, MEDICARE, MEDICAID ==
[~2024-12-03] VITALS: Ht 172.7 cm; Wt 69.1 kg
[2024-12-03 23:35] VITALS: BP 165/91; PULSE 65; RESP 18; O2SAT 100
[2024-12-04 02:08] VITALS: TEMP 97.5
== END 2024-12-04 02:18 | disposition home or self-care (01) ==
LOC: ER 23:24
DX: S82.891A Other fracture of right lower leg, initial encounter for closed fracture (principal); J44.9 Chronic obstructive pulmonary disease, unspecified; F31.9 Bipolar disorder, unspecified; F20.9 Schizophrenia, unspecified; Z56.0 Unemployment, unspecified; Z59.00 Homelessness unspecified; Z60.2 Problems related to living alone; Z98.890 Other specified postprocedural states; Z79.899 Other long term (current) drug therapy; X50.1XXA Overexertion from prolonged static or awkward postures, initial encounter; Y93.89 Activity, other specified; Y92.89 Other specified places as the place of occurrence of the external cause; Y99.8 Other external cause status
CPT/HCPCS: 73610; 99283; L4360

== ENCOUNTER 2024-12-07 11:02 | Emergency (ER) | payer OTHER, MEDICARE, MEDICAID ==
[~2024-12-07] VITALS: Ht 172.7 cm; Wt 70.8 kg
[2024-12-07 11:12] VITALS: BP 129/76; TEMP 97.2
[2024-12-07 14:34] VITALS: PULSE 91; RESP 18; O2SAT 96
== END 2024-12-07 14:36 | disposition home or self-care (01) ==
LOC: ER 11:02
DX: S82.891A Other fracture of right lower leg, initial encounter for closed fracture (principal); S92.811A Other fracture of right foot, initial encounter for closed fracture; J44.9 Chronic obstructive pulmonary disease, unspecified; F31.9 Bipolar disorder, unspecified; F20.9 Schizophrenia, unspecified; Z59.00 Homelessness unspecified; Z56.0 Unemployment, unspecified; Z98.890 Other specified postprocedural states; Z79.899 Other long term (current) drug therapy; X58.XXXA Exposure to other specified factors, initial encounter; Y93.89 Activity, other specified; Y92.89 Other specified places as the place of occurrence of the external cause; Y99.8 Other external cause status
CPT/HCPCS: 73610; 99283

== ENCOUNTER 2024-12-07 17:02 | Emergency (ER) | payer OTHER, MEDICARE, MEDICAID ==
[~2024-12-07] VITALS: Ht 175.3 cm; Wt 68.2 kg
[2024-12-07 17:55] VITALS: BP 160/94; PULSE 92; RESP 18; TEMP 98.6; O2SAT 98
== END 2024-12-07 21:13 | disposition left against medical advice (07) ==
LOC: ER 17:02
DX: J00 Acute nasopharyngitis [common cold] (principal); R05.9 Cough, unspecified; R68.89 Other general symptoms and signs; Z53.21 Procedure and treatment not carried out due to patient leaving prior to being seen by health care provider

== ENCOUNTER 2024-12-21 01:25 | Emergency (ER) | payer OTHER, MEDICARE, MEDICAID ==
[~2024-12-21] VITALS: Ht 172.7 cm; Wt 67.6 kg
[~2024-12-21 01:25] MED LIST changes: -KEN0.1O TP
[2024-12-21 01:39] VITALS: BP 159/86; PULSE 65; RESP 14; TEMP 98.3; O2SAT 99
== END 2024-12-21 02:16 | disposition left against medical advice (07) ==
LOC: ER 01:26
DX: Z00.00 Encounter for general adult medical examination without abnormal findings (principal); Z53.21 Procedure and treatment not carried out due to patient leaving prior to being seen by health care provider

== ENCOUNTER 2024-12-30 08:33 | Emergency (ER) | payer OTHER, MEDICARE, MEDICAID ==
[~2024-12-30] VITALS: Ht 172.7 cm; Wt 66.5 kg
[2024-12-30 08:42] VITALS: BP 117/66; PULSE 96; RESP 16; O2SAT 96
[2024-12-30 12:03] VITALS: TEMP 98
== END 2024-12-30 12:05 | disposition home or self-care (01) ==
LOC: ER 08:33
DX: Z00.00 Encounter for general adult medical examination without abnormal findings (principal); Z59.00 Homelessness unspecified; M79.89 Other specified soft tissue disorders; F20.9 Schizophrenia, unspecified; F31.9 Bipolar disorder, unspecified; J44.9 Chronic obstructive pulmonary disease, unspecified
CPT/HCPCS: 99281

== ENCOUNTER 2025-01-02 18:06 | Emergency (ER) | payer OTHER, MEDICARE, MEDICAID ==
[~2025-01-02] VITALS: Ht 172.7 cm; Wt 53.5 kg
[2025-01-02 18:17] VITALS: TEMP 96.8
[2025-01-02] MEDS: ketorolac trometh 15mg/ml vial 15 MG/ML ML IM ONE (20:23)
[2025-01-02 20:43] VITALS: BP 170/96; PULSE 98; RESP 18; O2SAT 98
== END 2025-01-02 20:44 | disposition home or self-care (01) ==
LOC: ER 18:07
DX: M79.671 Pain in right foot (principal); F20.9 Schizophrenia, unspecified; F31.9 Bipolar disorder, unspecified; J44.9 Chronic obstructive pulmonary disease, unspecified; Z98.890 Other specified postprocedural states
CPT/HCPCS: 73630; 96372; 99283; J1885

== ENCOUNTER 2025-01-06 18:42 | Emergency (ER) | payer OTHER, MEDICARE, MEDICAID ==
[~2025-01-06] VITALS: Ht 172.7 cm; Wt 69.1 kg
[2025-01-06 18:51] VITALS: BP 164/90; PULSE 75; RESP 16; TEMP 98.2; O2SAT 98
== END 2025-01-06 19:34 | disposition home or self-care (01) ==
LOC: ER 18:43
DX: G89.29 Other chronic pain (principal); M25.572 Pain in left ankle and joints of left foot; M79.671 Pain in right foot; F20.9 Schizophrenia, unspecified; F31.9 Bipolar disorder, unspecified; Z59.00 Homelessness unspecified; J44.9 Chronic obstructive pulmonary disease, unspecified
CPT/HCPCS: 99281

== ENCOUNTER 2025-01-10 19:06 | Emergency (ER) | payer OTHER, MEDICARE, MEDICAID ==
[~2025-01-10] VITALS: Ht 172.7 cm; Wt 72.7 kg
[2025-01-10 20:39] VITALS: BP 135/70; PULSE 90; RESP 18; TEMP 98.6; O2SAT 98
== END 2025-01-10 20:40 | disposition home or self-care (01) ==
LOC: ER 19:07
DX: R60.9 Edema, unspecified (principal); Z59.00 Homelessness unspecified; F20.9 Schizophrenia, unspecified; F31.9 Bipolar disorder, unspecified; J44.9 Chronic obstructive pulmonary disease, unspecified
CPT/HCPCS: 99281

== ENCOUNTER 2025-01-12 10:59 | Emergency (ER) | payer OTHER, MEDICARE, MEDICAID ==
[~2025-01-12] VITALS: Ht 170.2 cm; Wt 63.6 kg
[2025-01-12 11:28] VITALS: BP 134/73; PULSE 91; RESP 18; TEMP 98.1; O2SAT 98
[2025-01-12] MEDS ORDERED: PERM60CR27 TOP (17:50)
== END 2025-01-12 14:29 | disposition left against medical advice (07) ==
LOC: ER 11:00
DX: R11.0 Nausea (principal); Z53.21 Procedure and treatment not carried out due to patient leaving prior to being seen by health care provider

== ENCOUNTER 2025-01-12 17:12 | Emergency (ER) | payer OTHER, MEDICARE, MEDICAID ==
[~2025-01-12] VITALS: Ht 172.7 cm; Wt 70.8 kg
[2025-01-12 17:28] VITALS: BP 150/77; PULSE 79; RESP 16; TEMP 97.8; O2SAT 99
[2025-01-12] MEDS ORDERED: PERM60CR27 TOP (17:50)
== END 2025-01-12 18:08 | disposition home or self-care (01) ==
LOC: ER 17:13
DX: B85.1 Pediculosis due to Pediculus humanus corporis (principal); F31.9 Bipolar disorder, unspecified; F20.9 Schizophrenia, unspecified; J44.9 Chronic obstructive pulmonary disease, unspecified
CPT/HCPCS: 99282

== ENCOUNTER 2025-01-12 22:33 | Emergency (ER) | payer OTHER, MEDICARE, MEDICAID ==
[~2025-01-12] VITALS: Ht 172.7 cm; Wt 57.0 kg
[~2025-01-12 22:33] MED LIST changes: +PERM60CR27 TOP
[2025-01-12 22:37] VITALS: BP 131/76; PULSE 92; RESP 15; TEMP 96.8; O2SAT 99
== END 2025-01-12 22:51 | disposition home or self-care (01) ==
LOC: ER 22:34
DX: M79.673 Pain in unspecified foot (principal); F20.9 Schizophrenia, unspecified; F31.9 Bipolar disorder, unspecified; J44.9 Chronic obstructive pulmonary disease, unspecified
CPT/HCPCS: 99281

== ENCOUNTER 2025-01-17 18:48 | Emergency (ER) | payer OTHER, MEDICARE, MEDICAID ==
[~2025-01-17] VITALS: Ht 160 cm; Wt 72.7 kg
[2025-01-17 19:28] VITALS: BP 112/72; PULSE 81; RESP 18; TEMP 98.3; O2SAT 97
== END 2025-01-17 21:36 | disposition home or self-care (01) ==
LOC: ER 18:48
DX: L24.9 Irritant contact dermatitis, unspecified cause (principal); Z59.00 Homelessness unspecified; F20.9 Schizophrenia, unspecified; F31.9 Bipolar disorder, unspecified; J44.9 Chronic obstructive pulmonary disease, unspecified
CPT/HCPCS: 99281

== ENCOUNTER 2025-01-23 14:42 | Emergency (ER) | payer OTHER, MEDICARE, MEDICAID ==
[2025-01-23] MEDS ORDERED: PERM60CR27 TOP (18:40)
== END 2025-01-23 15:05 | disposition left against medical advice (07) ==
LOC: ER 14:42
DX: T14.8XXA Other injury of unspecified body region, initial encounter (principal); Z53.21 Procedure and treatment not carried out due to patient leaving prior to being seen by health care provider; W64.XXXA Exposure to other animate mechanical forces, initial encounter; Y93.89 Activity, other specified; Y92.89 Other specified places as the place of occurrence of the external cause; Y99.8 Other external cause status

== ENCOUNTER 2025-01-23 18:12 | Emergency (ER) | payer OTHER, MEDICARE, MEDICAID ==
[~2025-01-23] VITALS: Ht 172.7 cm; Wt 68.2 kg
[2025-01-23 18:22] VITALS: BP 135/67; PULSE 86; RESP 18; TEMP 98.2; O2SAT 97
[2025-01-23] MEDS ORDERED: PERM60CR27 TOP (18:40)
== END 2025-01-23 19:03 | disposition home or self-care (01) ==
LOC: ER 18:13
DX: B86 Scabies (principal); F20.9 Schizophrenia, unspecified; F31.9 Bipolar disorder, unspecified; J44.9 Chronic obstructive pulmonary disease, unspecified; Z98.890 Other specified postprocedural states
CPT/HCPCS: 99282

== ENCOUNTER 2025-01-26 17:07 | Emergency (ER) | payer OTHER, MEDICARE, MEDICAID ==
[~2025-01-26] VITALS: Ht 172.7 cm; Wt 72.7 kg
[2025-01-26 17:23] VITALS: BP 118/65; PULSE 88; RESP 16; TEMP 97.6; O2SAT 97
[2025-01-26] MEDS ORDERED: PERM60CR4 TOP (17:48)
== END 2025-01-26 17:57 | disposition home or self-care (01) ==
LOC: ER 17:07
DX: B86 Scabies (principal); F20.9 Schizophrenia, unspecified; F31.9 Bipolar disorder, unspecified; J44.9 Chronic obstructive pulmonary disease, unspecified
CPT/HCPCS: 99282

== ENCOUNTER 2025-01-27 19:53 | Emergency (ER) | payer OTHER, MEDICARE, MEDICAID ==
[~2025-01-27] VITALS: Ht 167.6 cm; Wt 65.9 kg
[~2025-01-27 19:53] MED LIST changes: +PERM60CR4 TOP
[2025-01-27 19:58] VITALS: TEMP 98.4
[2025-01-27 20:27] VITALS: BP 126/84; PULSE 80; RESP 16; O2SAT 99
== END 2025-01-27 20:44 | disposition home or self-care (01) ==
LOC: ER 19:54
DX: G89.29 Other chronic pain (principal); M79.604 Pain in right leg; M79.605 Pain in left leg; J44.9 Chronic obstructive pulmonary disease, unspecified; F20.9 Schizophrenia, unspecified; C7A.00 Malignant carcinoid tumor of unspecified site; F31.9 Bipolar disorder, unspecified; Z59.00 Homelessness unspecified; Z79.899 Other long term (current) drug therapy
CPT/HCPCS: 99281

== ENCOUNTER 2025-01-28 18:38 | Emergency (ER) | payer OTHER, MEDICARE, MEDICAID ==
[~2025-01-28] VITALS: Ht 172.7 cm; Wt 53.1 kg
[2025-01-28 18:45] VITALS: BP 111/87; PULSE 99; RESP 15; O2SAT 99
[2025-01-28 19:57] VITALS: TEMP 96.8
== END 2025-01-28 19:58 | disposition home or self-care (01) ==
LOC: ER 18:39
DX: M79.671 Pain in right foot (principal); M79.672 Pain in left foot; J44.9 Chronic obstructive pulmonary disease, unspecified; F20.9 Schizophrenia, unspecified; C7A.00 Malignant carcinoid tumor of unspecified site; Z79.899 Other long term (current) drug therapy
CPT/HCPCS: 99281

== ENCOUNTER 2025-01-30 15:36 | Emergency (ER) | payer OTHER, MEDICARE, MEDICAID ==
[~2025-01-30] VITALS: Ht 172.7 cm; Wt 68.7 kg
[2025-01-30 16:17] VITALS: BP 128/83; PULSE 76; RESP 18; O2SAT 97
[2025-01-30] MEDS ORDERED: ACET325T64 PO (16:24)
[2025-01-30] MEDS ORDERED: IBUP-2697 PO (16:24)
[2025-01-30] MEDS: acetaminophen 325mg tablet PO ONE (16:31)
[2025-01-30 17:05] VITALS: TEMP 98.3
== END 2025-01-30 17:08 | disposition home or self-care (01) ==
LOC: ER 15:36
DX: M79.672 Pain in left foot (principal); M79.671 Pain in right foot; F20.9 Schizophrenia, unspecified; F31.9 Bipolar disorder, unspecified; J44.9 Chronic obstructive pulmonary disease, unspecified; Z98.890 Other specified postprocedural states
CPT/HCPCS: 99282

== ENCOUNTER 2025-01-31 22:46 | Emergency (ER) | payer OTHER, MEDICARE, MEDICAID ==
[~2025-01-31 22:46] MED LIST changes: +ACET325T64 PO; +IBUP-2697 PO
[2025-02-01] MEDS ORDERED: HYDR28CR14 TOP (17:54)
== END 2025-01-31 22:56 | disposition left against medical advice (07) ==
LOC: ER 22:46
DX: R21 Rash and other nonspecific skin eruption (principal); Z53.21 Procedure and treatment not carried out due to patient leaving prior to being seen by health care provider

== ENCOUNTER 2025-02-01 17:48 | Emergency (ER) | payer OTHER, MEDICARE, MEDICAID ==
[2025-02-01] MEDS ORDERED: HYDR28CR14 TOP (17:54)
== END 2025-02-01 18:05 | disposition home or self-care (01) ==
LOC: ER 17:48
DX: L29.9 Pruritus, unspecified (principal); F20.9 Schizophrenia, unspecified; F31.9 Bipolar disorder, unspecified; J44.9 Chronic obstructive pulmonary disease, unspecified; Z98.890 Other specified postprocedural states
CPT/HCPCS: 99282

== ENCOUNTER 2025-02-03 22:06 | Emergency (ER) | payer OTHER, MEDICARE, MEDICAID ==
[~2025-02-03] VITALS: Ht 172.7 cm; Wt 42.4 kg
[~2025-02-03 22:06] MED LIST changes: +HYDR28CR14 TOP
[2025-02-03 22:23] VITALS: BP 137/83; PULSE 70; RESP 15; O2SAT 99
[2025-02-03 23:30] VITALS: TEMP 97.3
== END 2025-02-03 23:30 | disposition home or self-care (01) ==
LOC: ER 22:06
DX: Z00.00 Encounter for general adult medical examination without abnormal findings (principal); F20.9 Schizophrenia, unspecified; J44.9 Chronic obstructive pulmonary disease, unspecified; F31.9 Bipolar disorder, unspecified; Z59.00 Homelessness unspecified; Z79.899 Other long term (current) drug therapy; Z56.0 Unemployment, unspecified; Z60.2 Problems related to living alone
CPT/HCPCS: 99281

== ENCOUNTER 2025-02-04 12:38 | Emergency (ER) | payer OTHER, MEDICARE, MEDICAID ==
[~2025-02-04] VITALS: Ht 167.6 cm; Wt 62.7 kg
[2025-02-04 12:44] VITALS: PULSE 89; RESP 16; TEMP 98; O2SAT 96
== END 2025-02-04 14:06 | disposition left against medical advice (07) ==
LOC: ER 12:39
DX: R21 Rash and other nonspecific skin eruption (principal); Z53.21 Procedure and treatment not carried out due to patient leaving prior to being seen by health care provider

== ENCOUNTER 2025-02-09 11:22 | Emergency (ER) | payer OTHER, MEDICARE, MEDICAID ==
[~2025-02-09] VITALS: Ht 172.7 cm; Wt 64.0 kg
[2025-02-09 11:32] VITALS: BP 137/70; PULSE 80; RESP 18; TEMP 98; O2SAT 98
== END 2025-02-09 11:37 | disposition left against medical advice (07) ==
LOC: ER 11:22
DX: B85.1 Pediculosis due to Pediculus humanus corporis (principal); Z59.00 Homelessness unspecified; T14.8XXA Other injury of unspecified body region, initial encounter; F20.9 Schizophrenia, unspecified; F31.9 Bipolar disorder, unspecified; J44.9 Chronic obstructive pulmonary disease, unspecified; W57.XXXA Bitten or stung by nonvenomous insect and other nonvenomous arthropods, initial encounter; Y93.89 Activity, other specified; Y92.89 Other specified places as the place of occurrence of the external cause; Y99.8 Other external cause status
CPT/HCPCS: 99281

== ENCOUNTER → 2025-02-10 | Emergency (ER) | payer OTHER, MEDICARE, MEDICAID ==
[~2025-02-10] VITALS: Ht 172.7 cm; Wt 72.7 kg
[2025-02-10 17:48] VITALS: PULSE 86; RESP 15; TEMP 98.2; O2SAT 98
== END | disposition left against medical advice (07) ==
LOC: ER 17:43
DX: S40.862A Insect bite (nonvenomous) of left upper arm, initial encounter (principal); S40.861A Insect bite (nonvenomous) of right upper arm, initial encounter; Z59.00 Homelessness unspecified; F20.9 Schizophrenia, unspecified; F31.9 Bipolar disorder, unspecified; J44.9 Chronic obstructive pulmonary disease, unspecified; W57.XXXA Bitten or stung by nonvenomous insect and other nonvenomous arthropods, initial encounter; Y93.89 Activity, other specified; Y92.89 Other specified places as the place of occurrence of the external cause; Y99.8 Other external cause status
CPT/HCPCS: 99281

== ENCOUNTER 2025-02-12 17:28 | Emergency (ER) | payer OTHER, MEDICARE, MEDICAID ==
[~2025-02-12] VITALS: Ht 172.7 cm; Wt 63.6 kg
[2025-02-12 18:16] VITALS: BP 132/75; PULSE 97; RESP 16; TEMP 98; O2SAT 97
== END 2025-02-12 18:17 | disposition home or self-care (01) ==
LOC: ER 17:28
DX: Z48.00 Encounter for change or removal of nonsurgical wound dressing (principal); F20.9 Schizophrenia, unspecified; F31.9 Bipolar disorder, unspecified; J44.9 Chronic obstructive pulmonary disease, unspecified
CPT/HCPCS: 99281

== ENCOUNTER 2025-02-12 23:33 | Emergency (ER) | payer OTHER, MEDICARE, MEDICAID ==
[~2025-02-12] VITALS: Ht 172.7 cm; Wt 68.2 kg
[2025-02-12 23:42] VITALS: BP 138/76; PULSE 86; RESP 17; O2SAT 97
[2025-02-13 00:08] VITALS: TEMP 98.2
[2025-02-13] MEDS: acetaminophen 325mg tablet PO ONE (00:20)
[2025-02-13] MEDS: LIDOcaine 2% Viscous 15ml cup MM STA (00:20)
== END 2025-02-13 00:25 | disposition home or self-care (01) ==
LOC: ER 23:33
DX: J02.9 Acute pharyngitis, unspecified (principal); F20.9 Schizophrenia, unspecified; F31.9 Bipolar disorder, unspecified; J44.9 Chronic obstructive pulmonary disease, unspecified
CPT/HCPCS: 99283

== ENCOUNTER 2025-02-14 18:46 | Emergency (ER) | payer OTHER, MEDICARE, MEDICAID ==
[~2025-02-14] VITALS: Ht 172.7 cm; Wt 68.2 kg
[2025-02-14 20:15] VITALS: BP 148/76; PULSE 84; RESP 18; TEMP 98.6; O2SAT 99
== END 2025-02-14 20:16 | disposition home or self-care (01) ==
LOC: ER 18:47
DX: S82.892A Other fracture of left lower leg, initial encounter for closed fracture (principal); S82.891A Other fracture of right lower leg, initial encounter for closed fracture; Z59.00 Homelessness unspecified; F20.9 Schizophrenia, unspecified; F31.9 Bipolar disorder, unspecified; J44.9 Chronic obstructive pulmonary disease, unspecified; X58.XXXA Exposure to other specified factors, initial encounter; Y93.89 Activity, other specified; Y92.89 Other specified places as the place of occurrence of the external cause; Y99.8 Other external cause status
CPT/HCPCS: 99281

== ENCOUNTER 2025-02-15 17:24 | Emergency (ER) | payer OTHER, MEDICARE, MEDICAID ==
[~2025-02-15] VITALS: Ht 172.7 cm; Wt 68.2 kg
[2025-02-15 17:36] VITALS: BP 127/68; PULSE 86; RESP 18; O2SAT 97
[2025-02-15] MEDS ORDERED: Permethrin Cream 60gm TP STA (18:36)
[2025-02-15 19:16] VITALS: TEMP 98.3
== END 2025-02-15 19:17 | disposition home or self-care (01) ==
LOC: ER 17:25
DX: B88.9 Infestation, unspecified (principal); F20.9 Schizophrenia, unspecified; F31.9 Bipolar disorder, unspecified; J44.9 Chronic obstructive pulmonary disease, unspecified
CPT/HCPCS: 99281

== ENCOUNTER 2025-02-16 21:33 | Emergency (ER) | payer OTHER, MEDICARE, MEDICAID ==
[~2025-02-16] VITALS: Ht 172.7 cm; Wt 53.1 kg
[2025-02-16 21:54] VITALS: BP 144/65; PULSE 98; RESP 15; TEMP 97.8; O2SAT 99
== END 2025-02-17 00:15 | disposition home or self-care (01) ==
LOC: ER 21:34
DX: M25.571 Pain in right ankle and joints of right foot (principal); F20.9 Schizophrenia, unspecified; F31.9 Bipolar disorder, unspecified; J44.9 Chronic obstructive pulmonary disease, unspecified; C7A.00 Malignant carcinoid tumor of unspecified site
CPT/HCPCS: 99281

== ENCOUNTER 2025-05-29 17:34 | Emergency (ER) | payer MEDICARE, MEDICAID ==
[~2025-05-29] VITALS: Ht 172.7 cm; Wt 62.9 kg
[~2025-05-29 17:34] MED LIST changes: -ACET325T64 PO; -PERM60CR27 TOP
--- NOTE | 2025-05-29 18:59 | Physician Documentation ---
History of Present Illness ~ Chief Complaint: Ankle pain Stated Complaint: ANKLE PAIN Time Seen by MD: 18:52 OK to notify your PCP?: Yes Primary Medical Doctor: PIEDAD Source: patient Mode of Arrival: POV Exam Limitations: no limitations HPI 74-year-old male presents for chronic left ankle pain for the past few months. He states he has not taken any medications for his pain prior to arrival. He has full range motion and is ambulatory. Tetanus witin 5 years: Yes (2023) Medication Reconciliation Allergies: Coded Allergies: No Known Allergies (Unverified , 05/29/25) Scheduled Albuterol Sulfate (Proventil Hfa), 2 PUFFS INH Q4H Albuterol Sulfate (Proventil Hfa), 2 PUFFS INH Q4H Benztropine Mesylate (Benztropine Mesylate), 0.5 MG PO Q12H Benztropine Mesylate (Benztropine Mesylate), 1 TABLET PO BID, (Reported) Cephalexin*Monohydrate* (Keflex*), 1 CAP PO QID Citalopram Hydrobromide (Celexa), 10 MG PO DAILY Citalopram Hydrobromide (Celexa), 1 TABLET PO DAILY, (Reported) Divalproex ER* (Depakote ER*), 3 TAB PO HS, (Reported) Divalproex Sodium (Depakote Er), 1,500 MG PO HS Guaifenesin (Mucinex), 1 TAB PO Q12H Hydrocortisone (hydrocortisone 1% cream), 1 APPLIC TOP Q12H Nicotine 21 MG Patch* (Habitrol 21 MG Patch*), 1 PATCH TD DAILY Nicotine 21 MG Patch* (Habitrol 21 MG Patch*), 1 PATCH TD DAILY, (Reported) Oxymetazoline HCl (Afrin), 1 SPRAYS BOTHNARES Q12H Paliperidone Palmitate (Invega Sustenna), 1 SYR IM Q30D, (Reported) Permethrin (Permethrin), 1 APPLIC TOP ONCE Risperidone (Risperidone), 1 TAB PO HS, (Reported) Sulfamethoxazole/Trimethoprim (Bactrim Ds Tablet), 1 TAB PO Q12H Scheduled PRN Ibuprofen (Ibuprofen), 2 TAB PO Q6H PRN for pain Past Medical History Past Medical History: COPD, Extremity Fracture, Bipolar, Schizophrenia Past Surgical History: noncontributory, orthopedic surgeries Patient History: (Cancer) Malignant carcinoid tumor FATHER MOTHER FH: bipolar disorder FH: depression Alcohol Use: Other Drug Use: none Lives with: Alone Lives In: Homeless Occupation: unemployed Review of Systems All Other Systems at this time: Reviewed and Negative Physical Exam Vital Signs: RN Vital Signs have been reviewed: Yes, Temperature: 99.1, Source: Temporal, Heart Rate: 86, Respiratory Rate: 20, BP: 143/81, Pulse Oximetry: 98, Weight: 62.850 Oxygen Flow Rate: 0 Pulse Oximetry Reflects: adequate oxygenation Physical Exam General: Alert, no distress. HEENT: No injection, moist mucous membranes. Neck: Full range of motion. Respiratory: No respiratory distress, equal chest rise and fall. Chest: No accessory muscle use. Cardiovascular: Regular rate and rhythm. Gastrointestinal: Nondistended. Extremities: Normal range of motion, no deformity left ankle. Nontender to palpation, good pulses, good CSM, good sensation. Neurologic: Oriented x4. Psychiatric: Normal mood and affect. Skin: Normal color, warm and dry. Progress Results/Orders Reviewed/noted all lab results: Yes Results/Orders Orders - [facility] Acetaminophen 325mg Tablet (Tylenol Tabl (05/29/25 18:55) Ibuprofen Tablet (Motrin Tablet) (05/29/25 18:55) Vital Signs 05/29/25 17:36 Temp 99.1 Pulse 86 Resp 20 B/P (MAP) 143/81 Pulse Ox 98 O2 Flow Rate 0 Medical Decision Making Additional info obtained from: old records Findings 74-year-old male presents with chronic ankle pain. He has not had any new injuries to that ankle but it has just been hurting due to his excessive walking. We gave him a meal as he is homeless as well as an Tylenol and ibuprofen for pain relief while here in the department. He is fully ambulatory and his physical exam is unremarkable. We discussed that he follow up with [facility] within the next week and return back here for any new or worsening symptoms. You can use [id number] Tylenol and ibuprofen for his chronic pain. Ankle Diff Dx:Considerations: Include: Fracture-metatarsal, Fracture-fibula, Fracture-tarsal, Fracture-tibia, Gout, Neurovascular injury, Open fracture, Osteomyelitis Departure Disposition: 01 HOME / SELF CARE / HOMELESS Impression: Primary Impression: Ankle pain Condition: Stable Discharge Instructions: Ankle Pain Additional Instructions: Follow up with [facility] within the next week return back here for any new or worsening symptoms. Continue to use Tylenol and ibuprofen for pain relief. Referrals: NO PRIMARY CARE PROVIDER (PCP) Education Educated: Patient Educated regarding: diagnosis, treatment, prognosis, need for follow up Additional Comment Medical Screen Exam This patient recieved a medical screening examination. After reviewing the individual's medical complaints with presenting symptoms and performing an appropriate physical examination, it was determined that no immediate life- threatening emergency medical condition is present. This individual is also not a women having contractions. Signature Scribe Signature: . Attestation: Scribed for Mini Gonzalez Geodetic Survey Director by Mini Ye NP . 05/29/25 18:58 Parts of this note were created using [employer] voice recognition software program. While efforts were made to correct any mistakes made by this voice recognition software program, nonsensical phrases may remain in this note. In a ddition, there may be errors and syntax, grammar, content and spelling. [facility] May 29, 2025 18:59
[2025-05-29] MEDS: ibuprofen tablet 400 MG TABLET PO ONE (19:01)
[2025-05-29 19:02] VITALS: BP 140/80; PULSE 85; RESP 18; TEMP 98.6; O2SAT 99
== END 2025-05-29 19:03 | disposition home or self-care (01) ==
LOC: ER 17:35
DX: M25.572 Pain in left ankle and joints of left foot (principal); J44.9 Chronic obstructive pulmonary disease, unspecified; F20.9 Schizophrenia, unspecified; F31.9 Bipolar disorder, unspecified; Z88.1 Allergy status to other antibiotic agents; Z79.899 Other long term (current) drug therapy
CPT/HCPCS: 99282; Z7610

== ENCOUNTER 2025-06-09 14:31 | Emergency (ER) | payer MEDICARE, MEDICAID ==
[~2025-06-09] VITALS: Ht 172.7 cm; Wt 60.8 kg
[2025-06-09 15:05] VITALS: BP 118/66; PULSE 75; RESP 16; TEMP 98; O2SAT 98
[2025-06-09 15:49] LABS: MEAN PLATELET VOLUME 6.6 FL (7.4-10.4); RED CELL DISTRIBUTION WIDTH 16.2 % (11.5-14.5)
[2025-06-09 16:12] LABS: CREATININE 1.02 MG/DL (0.60-1.10); TOTAL CARBON DIOXIDE 27.8 MMOL/L (24-32); eCRCL 55 ML/MIN; eGFR 72 ML/MIN
== END 2025-06-09 16:33 | disposition left against medical advice (07) ==
LOC: ER 14:32
DX: M79.89 Other specified soft tissue disorders (principal); Z53.21 Procedure and treatment not carried out due to patient leaving prior to being seen by health care provider; W57.XXXA Bitten or stung by nonvenomous insect and other nonvenomous arthropods, initial encounter; Y93.89 Activity, other specified; Y92.89 Other specified places as the place of occurrence of the external cause; Y99.8 Other external cause status
CPT/HCPCS: 36415; 80053; 84550; 85025

== ENCOUNTER 2025-06-18 14:03 | Emergency (ER) | payer MEDICARE, MEDICAID ==
[~2025-06-18] VITALS: Ht 172.7 cm; Wt 60.1 kg
[2025-06-18 14:19] VITALS: BP 130/79; PULSE 72; RESP 18; TEMP 98.3; O2SAT 98
--- NOTE | 2025-06-18 14:23 | Physician Documentation ---
History of Present Illness ~ Chief Complaint: Medical Clearance Stated Complaint: MED CLEARANCE Time Seen by MD: 14:24 Primary Medical Doctor: PIEDAD [facility] Patient is a 74-year-old male that presents to the emergency department for evaluation of medical clearance so that he may present to an alcohol treatment program. Tetanus within 5 years?: Yes (2023) Medication Reconciliation Allergies: Coded Allergies: No Known Allergies (Unverified , 06/18/25) Scheduled Albuterol Sulfate (Proventil Hfa), 2 PUFFS INH Q4H Albuterol Sulfate (Proventil Hfa), 2 PUFFS INH Q4H Benztropine Mesylate (Benztropine Mesylate), 0.5 MG PO Q12H Benztropine Mesylate (Benztropine Mesylate), 1 TABLET PO BID, (Reported) Cephalexin*Monohydrate* (Keflex*), 1 CAP PO QID Citalopram Hydrobromide (Celexa), 10 MG PO DAILY Citalopram Hydrobromide (Celexa), 1 TABLET PO DAILY, (Reported) Divalproex ER* (Depakote ER*), 3 TAB PO HS, (Reported) Divalproex Sodium (Depakote Er), 1,500 MG PO HS Guaifenesin (Mucinex), 1 TAB PO Q12H Hydrocortisone (hydrocortisone 1% cream), 1 APPLIC TOP Q12H Nicotine 21 MG Patch* (Habitrol 21 MG Patch*), 1 PATCH TD DAILY Nicotine 21 MG Patch* (Habitrol 21 MG Patch*), 1 PATCH TD DAILY, (Reported) Oxymetazoline HCl (Afrin), 1 SPRAYS BOTHNARES Q12H Paliperidone Palmitate (Invega Sustenna), 1 SYR IM Q30D, (Reported) Permethrin (Permethrin), 1 APPLIC TOP ONCE Risperidone (Risperidone), 1 TAB PO HS, (Reported) Sulfamethoxazole/Trimethoprim (Bactrim Ds Tablet), 1 TAB PO Q12H Scheduled PRN Ibuprofen (Ibuprofen), 2 TAB PO Q6H PRN for pain Past Medical History Past Medical History: COPD, Extremity Fracture, Bipolar, Schizophrenia Past Surgical History: noncontributory, orthopedic surgeries Patient History: (Cancer) Malignant carcinoid tumor FATHER MOTHER FH: bipolar disorder FH: depression Alcohol Use: Other Drug Use: none Lives with: Alone Lives In: Homeless Occupation: unemployed Review of Systems ROS As stated above in the HPI, otherwise all systems are reviewed and negative. Physical Exam Vital Signs: Temperature: 98.3, Source: Oral, Heart Rate: 72, Respiratory Rate: 18, BP: 130/79, Pulse Oximetry: 98, Weight: 60.100 Oxygen Flow Rate: 0 Physical Exam VITALS: Reviewed and as above. GENERAL: Alert, no apparent distress. HEENT: Normocephalic, atraumatic, PERRL, EOMI, dry mucosa, no erythema RESPIRATORY: Lungs clear, normal breath sounds, no respiratory distress. CHEST: No accessory muscle use, no retractions CV: Regular rate, rhythm, no edema, no murmur, No: JVD GI: Soft, non-tender, bowels sounds present, no rebound, guarding, or rigidity BACK: No CVA tenderness, or swelling MUSCULOSKELETAL No deformities, no edema SKIN: Warm and dry, no rash NEURO: Oriented x4, No motor or sensory deficit PSYCH: Normal mood and affect, no agitation Progress Results/Orders Results/Orders Vital Signs 06/18/25 14:19 Temp 98.3 Pulse 72 Resp 18 B/P (MAP) 130/79 Pulse Ox 98 O2 Flow Rate 0 Medical Decision Making Findings Patient appears to the emergency department for evaluation of medical condition and to be cleared medically so that he can attend and alcohol rehabilitation [place]. Patient physical exam and interview patient is deemed medically clear at this time and can attend the alcohol rehabilitation program. Differential Dx:Considerations: Include: Intoxication-Alcohol, Intoxication- Other drug, Personality disorder, Substance abuse disorder, Acute delirium, Closed head injury, Cervical spine injury, Skull fracture, Fracture(s), Abrasion, Contusion, Foreign body, Hematoma, Laceration, Alcohol withdrawl syndrom, Encephalopathy, Hepatitis, Medically stable, Other Departure Disposition: HOME / SELF CARE / HOMELESS Impression: Primary Impression: General medical exam Additional Instructions: Today you were evaluated in the emergency department and received a medical clearance so that you can attend alcohol rehabilitation. Based on examination and interview UR medically cleared inappropriate to attend the rehabilitation program at this time. Referrals: NO PRIMARY CARE PROVIDER (PCP) Education Educated: Patient Educated regarding: diagnosis, prognosis, need for follow up Signature Scribe Signature: A Attestation: Scribed for Natalia Maynard by NEMESIO Brito . 06/18/25 14:32 NATALIA MAYNARD Jun 18, 2025 14:23
== END 2025-06-18 14:40 | disposition home or self-care (01) ==
LOC: ER 14:03
DX: Z00.8 Encounter for other general examination (principal); J44.9 Chronic obstructive pulmonary disease, unspecified; F20.9 Schizophrenia, unspecified; F31.9 Bipolar disorder, unspecified
CPT/HCPCS: 99282

== ENCOUNTER 2025-06-21 15:23 | Emergency (ER) | payer MEDICARE, MEDICAID ==
[~2025-06-21] VITALS: Ht 172.7 cm; Wt 65.4 kg
--- NOTE | 2025-06-21 15:37 | Physician Documentation ---
History of Present Illness ~ Chief Complaint: Ankle pain Stated Complaint: FOOT PAIN Time Seen by MD: 18:44 Primary Medical Doctor: PIEDAD PENDLETON Patient is a 74-year-old gentleman that presents to the emergency department for right-sided ankle pain x1 year. Patient denies any new injuries to the ankle or any increased pain. Patient reports that he would just like to have it evaluate d in figure out why it has been hurting for the last year. Patient denies any other medical concerns at this time. Tetanus witin 5 years: Yes (2023) Medication Reconciliation Allergies: Coded Allergies: No Known Allergies (Unverified , 06/18/25) Scheduled Albuterol Sulfate (Proventil Hfa), 2 PUFFS INH Q4H Albuterol Sulfate (Proventil Hfa), 2 PUFFS INH Q4H Benztropine Mesylate (Benztropine Mesylate), 0.5 MG PO Q12H Benztropine Mesylate (Benztropine Mesylate), 1 TABLET PO BID, (Reported) Cephalexin*Monohydrate* (Keflex*), 1 CAP PO QID Citalopram Hydrobromide (Celexa), 10 MG PO DAILY Citalopram Hydrobromide (Celexa), 1 TABLET PO DAILY, (Reported) Divalproex ER* (Depakote ER*), 3 TAB PO HS, (Reported) Divalproex Sodium (Depakote Er), 1,500 MG PO HS Guaifenesin (Mucinex), 1 TAB PO Q12H Hydrocortisone (hydrocortisone 1% cream), 1 APPLIC TOP Q12H Nicotine 21 MG Patch* (Habitrol 21 MG Patch*), 1 PATCH TD DAILY Nicotine 21 MG Patch* (Habitrol 21 MG Patch*), 1 PATCH TD DAILY, (Reported) Oxymetazoline HCl (Afrin), 1 SPRAYS BOTHNARES Q12H Paliperidone Palmitate (Invega Sustenna), 1 SYR IM Q30D, (Reported) Permethrin (Permethrin), 1 APPLIC TOP ONCE Risperidone (Risperidone), 1 TAB PO HS, (Reported) Sulfamethoxazole/Trimethoprim (Bactrim Ds Tablet), 1 TAB PO Q12H Scheduled PRN Ibuprofen (Ibuprofen), 2 TAB PO Q6H PRN for pain Past Medical History Past Medical History: COPD, Extremity Fracture, Bipolar, Schizophrenia Past Surgical History: noncontributory, orthopedic surgeries Patient History: (Cancer) Malignant carcinoid tumor FATHER MOTHER FH: bipolar disorder FH: depression Alcohol Use: Other Drug Use: none Lives with: Alone Lives In: Homeless Occupation: unemployed Review of Systems ROS As stated above in the HPI, otherwise all systems are reviewed and negative. Physical Exam Vital Signs: Temperature: 99.0, Source: Temporal, Heart Rate: 78, Respiratory Rate: 16, BP: 138/82, Pulse Oximetry: 98, Weight: 65.400 Oxygen Flow Rate: 0 Physical Exam VITALS: Reviewed and as above. GENERAL: Alert, no apparent distress. HEENT: Normocephalic, atraumatic, PERRL, EOMI, dry mucosa, no erythema RESPIRATORY: Lungs clear, normal breath sounds, no respiratory distress. CHEST: No accessory muscle use, no retractions CV: Regular rate, rhythm, no edema, no murmur, No: JVD GI: Soft, non-tender, bowels sounds present, no rebound, guarding, or rigidity BACK: No CVA tenderness, or swelling MUSCULOSKELETAL No deformities, no edema but significant pain with range of motion during exam to the right ankle foot SKIN: Warm and dry, no rash NEURO: Oriented x4, No motor or sensory deficit PSYCH: Normal mood and affect, no agitation Progress Results/Orders Results/Orders Orders - NATALIA MANN [facility] IN[facility] SPECIALIST Ankle, Complete(3vw Min) (06/21/25 18:09) Foot, Complete (3vw Min) (06/21/25 18:09) Completed Orders - NATALIA MANN [facility] INFORMATION SPECIALIST Ankle, Complete(3vw Min) (06/21/25 18:09) Foot, Complete (3vw Min) (06/21/25 18:09) Vital Signs 06/21/25 06/21/25 15:26 18:21 Temp 99.0 Pulse 78 71 Resp 16 15 B/P (MAP) 138/82 128/76 (93) Pulse Ox 98 98 O2 Flow Rate 0 0 Medical Decision Making Findings The Pt was found to negative for fracture to the right foot today. Based on imaging, and old injuries the likelihood of arthritic pain is probable. The Pt is otherwise well appearing, hemodynamically stable, and shows no evidence of neurovascular injury or compartment syndrome. Patient was placed in Jabari wrap and splint and will follow up with PMD for ortho referal. Return to the emergency department with any worsening of his current symptoms or any additional cordelia rning symptoms that we discussed here today i.e. increased edema swelling redness increased pain fever chills or any other concerning symptoms. Imaging shows subacute injuries. Old injuries noted on x-ray with hardware. Rest ice elevate as tolerated. Apply Jabari wrap for compression. Tylenol ibuprofen as needed for discomfort. Use splint to the foot as tolerated and so he can follow up with primary care provider or orthopedics [phone]. General Diff Dx:Considerations: Include: Abrasion, Contusion, Fracture, Hematoma, Laceration, Malunion, Neurovascular injury, Open fracture, Sprain, Ulcer, Other Ankle Diff Dx:Considerations: Include: Abrasion, Arthritis, Contusion, DJD, Fracture-metatarsal, Fracture-fibula, Fracture-tarsal, Fracture-tibia, Gout, Hematoma, Laceration, Malunion, Neurovascular injury, Nonunion, Open fracture, Osteomyelitis, Rheumatoid arthritis, Sprain, Septic, Ulcer, Other Foot Diff Dx:Considerations: Include: Abrasion, Arthritis, Cellulitis, Contusion, Dislocation, DJD, Fracture-metatarsal, Fracture-phalynx, Fracture- tarsal, Gout, Hematoma, Ingrown toenail, Laceration, Malunion, Neurovascular injury, Open fracture, Paronychia, Puncture, Rheumatoid, Sprain, Septic, Subu ngual hematoma, Ulcer, Other Departure Disposition: 01 HOME / SELF CARE / HOMELESS Impression: Primary Impression: Arthritis of right ankle Additional Impression: Chronic pain of right ankle Condition: Stable Discharge Instructions: Ankle Pain, Arthritis Additional Instructions: The Pt was found to negative for fracture to the right foot today. Based on imaging, and old injuries the likelihood of arthritic pain is probable. The Pt is otherwise well appearing, hemodynamically stable, and shows no evidence of neurovascular injury or compartment syndrome. Patient was placed in Jabari wrap and splint and will follow up with PMD for ortho referal. Return to the emergency department with any worsening of his current symptoms or any additional concerning symptoms that we discussed here today i.e. increased edema swelling redness increased pain fever chills or any other concerning symptoms. Imaging shows subacute injuries. Old injuries noted on x-ray with hardware. Rest ice elevate as tolerated. Apply Jabari wrap for compression. Tylenol ibuprofen as needed for discomfort. Use splint to the foot as tolerated and so he can follow up with primary care provider or orthopedics [phone]. Referrals: NO PRIMARY CARE PROVIDER (PCP) Education Educated: Patient Educated regarding: diagnosis, treatment, need for follow up Signature Scribe Signature: AScribed for Natalia Mann by NEMESIO Brito . 06/21/25 19:19 Attestation: Scribed for Natalia Mann Four Slide Machine Operator by NEMESIO Brito . 06/21/25 19:19 NATALIA MANN Jun 21, 2025 15:37
--- NOTE | 2025-06-21 18:35 | RADIOLOGY REPORT ---
Indication: Pain RIGHT Technique: DI ANKLE, COMPLETE(3VW MIN), DI FOOT, COMPLETE (3VW MIN)ANKLECPLT Comparison: 01/02/2025 FINDINGS/IMPRESSION: Distal fibular/lateral malleolar fixation plate and screws, syndesmotic screw. Mild 2 mm lucency surr ounding the syndesmotic screw could represent sequela of loosening. Redemonstration of medial malleolar fracture with nonunion. There is surrounding soft tissue edema. C orrelate for nonunion/nonhealing, infection. Widening of the lateral l ankle clear space by 7 mm which could represent sequela of ligamentous inju ry. There is abnormal tilt of the tibiotalar joint. Widening of the ankle mortise /tibiotalar joint by 7 mm along the lateral aspect. Old distal fibular/lateral malleolar fracture deformity with nonunion. Achilles enthesopathy. Inferior calcaneal spurring. Pes planus. Old 2nd metatarsal fracture deformity. Flexion deformity of the 1st IP joint.
[2025-06-21 19:34] VITALS: BP 126/74; PULSE 70; RESP 18; TEMP 98.6; O2SAT 99
== END 2025-06-21 19:35 | disposition home or self-care (01) ==
LOC: ER 15:24
DX: M19.071 Primary osteoarthritis, right ankle and foot (principal); G89.29 Other chronic pain; M25.571 Pain in right ankle and joints of right foot; J44.9 Chronic obstructive pulmonary disease, unspecified; F20.9 Schizophrenia, unspecified; F31.9 Bipolar disorder, unspecified; Z79.899 Other long term (current) drug therapy; Z56.0 Unemployment, unspecified; Z59.00 Homelessness unspecified; Z60.2 Problems related to living alone
CPT/HCPCS: 29515; 73610; 73630; 99284

== ENCOUNTER 2025-08-30 01:30 | Emergency (ER) | payer MEDICAID, MEDICARE ==
[~2025-08-30] VITALS: Ht 172.7 cm; Wt 65.9 kg
[~2025-08-30 01:30] MED LIST changes: +PERM60CR21 TOP; -PERM60CR4 TOP
--- NOTE | 2025-08-30 03:41 | Physician Documentation ---
History of Present Illness ~ Chief Complaint: Itching Stated Complaint: FEELS ITCHY Time Seen by MD: 02:05 Primary Medical Doctor: PIEDAD Source: patient Mode of Arrival: Ambulatory Exam Limitations: no limitations HPI Mr. Gray is a 74 y/o male who presents with c/o generalized itching. He has been seen here in the ED previously with the same complaint and typically takes a shower and shave and feels better. Occasionally, he receives shampoo and treatment for possible lice but he is without complaints of seeing bugs. No recent febrile illness. Medication Reconciliation Allergies: Coded Allergies: No Known Allergies (Unverified , 06/18/25) Scheduled Albuterol Sulfate (Proventil Hfa), 2 PUFFS INH Q4H Albuterol Sulfate (Proventil Hfa), 2 PUFFS INH Q4H Benztropine Mesylate (Benztropine Mesylate), 0.5 MG PO Q12H Benztropine Mesylate (Benztropine Mesylate), 1 TABLET PO BID, (Reported) Cephalexin*Monohydrate* (Keflex*), 1 CAP PO QID Citalopram Hydrobromide (Celexa), 10 MG PO DAILY Citalopram Hydrobromide (Celexa), 1 TABLET PO DAILY, (Reported) Divalproex ER* (Depakote ER*), 3 TAB PO HS, (Reported) Divalproex Sodium (Depakote Er), 1,500 MG PO HS Guaifenesin (Mucinex), 1 TAB PO Q12H Hydrocortisone (hydrocortisone 1% cream), 1 APPLIC TOP Q12H Nicotine 21 MG Patch* (Habitrol 21 MG Patch*), 1 PATCH TD DAILY Nicotine 21 MG Patch* (Habitrol 21 MG Patch*), 1 PATCH TD DAILY, (Reported) Oxymetazoline HCl (Afrin), 1 SPRAYS BOTHNARES Q12H Paliperidone Palmitate (Invega Sustenna), 1 SYR IM Q30D, (Reported) Permethrin (Permethrin), 1 APPLIC TOP ONCE Risperidone (Risperidone), 1 TAB PO HS, (Reported) Sulfamethoxazole/Trimethoprim (Bactrim Ds Tablet), 1 TAB PO Q12H Scheduled PRN Ibuprofen (Ibuprofen), 2 TAB PO Q6H PRN for pain Past Medical History Past Medical History: COPD, Extremity Fracture, Bipolar, Schizophrenia Past Surgical History: noncontributory, orthopedic surgeries Patient History: (Cancer) Malignant carcinoid tumor FATHER MOTHER FH: bipolar disorder FH: depression Alcohol Use: Other Drug Use: none Lives with: Alone Lives In: Homeless Occupation: unemployed Review of Systems All Other Systems at this time: Reviewed and Negative Physical Exam Vital Signs: RN Vital Signs have been reviewed: Yes, Temperature: 98.1, Source: Oral, Heart Rate: 73, Respiratory Rate: 16, BP: 129/78, Pulse Oximetry: 97, Weight: 65.910 Oxygen Flow Rate: 0 Physical Exam GEN: Alert and oriented and in NAD. HEENT: NC/AT. PERRLA. No scleral icterus. MMM. No oral lesions. NECK: Supple. No JVD. CHEST: RRR. No M/G/T. LUNGS: CTA B. No W/R/R. ABD: Soft. NTND. + BS. No rebounding or guarding. BACK: No CVA TTP. EXT: No c/c/e. NEURO: Alert and oriented x 4. Cooperative. Sensorimotor intact x 4 extremities. Progress Results/Orders Results/Orders Vital Signs 08/30/25 01:45 Temp 98.1 Pulse 73 Resp 16 B/P (MAP) 129/78 Pulse Ox 97 O2 Flow Rate 0 Medical Decision Making Additional information obtaine: old records Findings While here in the ED, he remained hemodynamically normal with ABC's intact and in NAD. He is afebrile and nontoxic. He came into the ED and went into the restroom to get cleaned up. He came out and stated that he felt significant better and was without ongoing issues/complaints. No hives/urticaria. I have low clinical concern for SJS or TENS. He is safe for d/c home with outpatient follow-up. He was given follow-up and return instructions. He voiced understanding and agreement with d/c instructions. Differential Dx:Considerations: Include: Atopic dermatitis, Contact dermatitis, Drug reaction, Erythema multiforme, Erysipelas, Herpes zoster, Herpes simplex, Impetigo, Pediculosis, Pityriasis rosea, Psoriaisis, RMSF, Scabies, Tinea, Urticaria, Viral exanthema Departure Disposition: HOME / SELF CARE / HOMELESS Impression: Primary Impression: Itching Condition: Improved Discharge Instructions: Itching Referrals: NO PRIMARY CARE PROVIDER (PCP) Comments Follow-up with your family physician and return to the Emergency Department if there are any additional concerns. Education Educated: Patient Educated regarding: diagnosis, treatment ACF Form Admit Criteria Met or Not Met: NO Signature Scribe Signature: N/A Attestation: N/A LIS FLOYD MD Aug 30, 2025 03:41
[2025-08-30 03:47] VITALS: BP 122/70; PULSE 72; RESP 18; TEMP 98.6; O2SAT 99
== END 2025-08-30 03:48 | disposition home or self-care (01) ==
LOC: ER 01:31
DX: L29.9 Pruritus, unspecified (principal); J44.9 Chronic obstructive pulmonary disease, unspecified; F31.9 Bipolar disorder, unspecified; F20.9 Schizophrenia, unspecified; Z79.899 Other long term (current) drug therapy; Z98.890 Other specified postprocedural states; Z59.00 Homelessness unspecified; Z60.2 Problems related to living alone
CPT/HCPCS: 99282

== ENCOUNTER 2025-09-19 22:19 | Emergency (ER) | payer OTHER, MEDICARE ==
[~2025-09-19] VITALS: Ht 172.7 cm; Wt 67.4 kg
--- NOTE | 2025-09-19 22:47 | Physician Documentation ---
History of Present Illness General Chief Complaint: See Chief Complaint Stated Complaint: HEAD COLD Primary Medical Doctor: PIEDAD History of Present Illness Initial Comments This is a 74-year-old homeless gentleman well known to the emergency department who presents reporting nasal congestion onset today, on discussion with the patient who reports primary concern is that all of his dry clothes have become wet due to the recent rain and he is in need of warm dry clothes. Patient reports no other acute symptoms or concerns. Medication Reconciliation Allergies: Coded Allergies: No Known Allergies (Unverified , 06/18/25) Scheduled Albuterol Sulfate (Proventil Hfa), 2 PUFFS INH Q4H Albuterol Sulfate (Proventil Hfa), 2 PUFFS INH Q4H Benztropine Mesylate (Benztropine Mesylate), 0.5 MG PO Q12H Benztropine Mesylate (Benztropine Mesylate), 1 TABLET PO BID, (Reported) Cephalexin*Monohydrate* (Keflex*), 1 CAP PO QID Citalopram Hydrobromide (Celexa), 10 MG PO DAILY Citalopram Hydrobromide (Celexa), 1 TABLET PO DAILY, (Reported) Divalproex ER* (Depakote ER*), 3 TAB PO HS, (Reported) Divalproex Sodium (Depakote Er), 1,500 MG PO HS Guaifenesin (Mucinex), 1 TAB PO Q12H Hydrocortisone (hydrocortisone 1% cream), 1 APPLIC TOP Q12H Nicotine 21 MG Patch* (Habitrol 21 MG Patch*), 1 PATCH TD DAILY Nicotine 21 MG Patch* (Habitrol 21 MG Patch*), 1 PATCH TD DAILY, (Reported) Oxymetazoline HCl (Afrin), 1 SPRAYS BOTHNARES Q12H Paliperidone Palmitate (Invega Sustenna), 1 SYR IM Q30D, (Reported) Permethrin (Permethrin), 1 APPLIC TOP ONCE Risperidone (Risperidone), 1 TAB PO HS, (Reported) Sulfamethoxazole/Trimethoprim (Bactrim Ds Tablet), 1 TAB PO Q12H Scheduled PRN Ibuprofen (Ibuprofen), 2 TAB PO Q6H PRN for pain Past Medical History Past Medical History: COPD, Extremity Fracture, Bipolar, Schizophrenia Past Surgical History: noncontributory, orthopedic surgeries Alcohol Use: Other Drug Use: none Lives with: Alone Lives In: Homeless Occupation: unemployed Review of Systems ROS As stated above in the HPI, otherwise all systems are reviewed and negative. Physical Exam Physical Exam Vital Signs: Temperature: 97.6, Source: Oral, Heart Rate: 82, Respiratory Rate: 16, BP: 139/89, Pulse Oximetry: 98, Weight: 67.400 Physical Exam VITALS: Reviewed and as above. GENERAL: Alert, nontoxic appearing, no apparent distress, disheveled RESPIRATORY: No increased work of breathing, no respiratory distress, speaking in full clear sentences Progress Results/Orders Results/Orders Vital Signs 09/19/25 09/19/25 22:35 22:55 Temp 97.6 98.6 Pulse 82 80 Resp 16 18 B/P (MAP) 139/89 136/86 Pulse Ox 98 99 Medical Decision Making Additional information obtaine: old records Findings This 74-year-old homeless gentleman presented to the emergency department due to being wet and cold after all his dry close became wet, patient provided warm dry clothes and a puncture by nursing staff. Patient educated on staying warm and dry in the wet cold weather and provided an extra change of socks. Patient verbalized understanding of home care instructions and return to care precautions. Differential Diagnosis Homeless, URI, malingering, hypothermia Departure Time of Disposition: 22:47 Disposition: 01 HOME / SELF CARE / HOMELESS Impression: Primary Impression: Homelessness Additional Impression: Cold exposure Qualified Codes: T69.9XXA - Effect of reduced temperature, unspecified, initial encounter Condition: Improved Additional Instructions: Please use the provided upon show to help stay dry, please change your socks daily, you have been provided an extra changes socks I recommend keeping one set dry for use at night to allow your feet some time to dry out every day. The [facility] provides homeless services you may consider presenting there for fpc and services. Please follow up with your primary care provider in the next few days. Please return to the emergency department for any new or worsening concerning symptoms. Referrals: NO PRIMARY CARE PROVIDER (PCP) Education Educated: Patient Educated regarding: diagnosis, treatment, prognosis, need for follow up Signature Scribe Signature: No scribe Attestation: The note accurately reflects work and decisions made by me.NEMESIO Zapata 09/20/25 01:28 TERRI ALEGRIA Sep 19, 2025 22:47
[2025-09-19 22:55] VITALS: BP 136/86; PULSE 80; RESP 18; TEMP 98.6; O2SAT 99
== END 2025-09-19 22:56 | disposition home or self-care (01) ==
LOC: ER 22:20
DX: T69.9XXA Effect of reduced temperature, unspecified, initial encounter (principal); F31.9 Bipolar disorder, unspecified; F20.9 Schizophrenia, unspecified; J44.9 Chronic obstructive pulmonary disease, unspecified; Z59.00 Homelessness unspecified; Z79.899 Other long term (current) drug therapy; Z56.0 Unemployment, unspecified; Z98.890 Other specified postprocedural states; X31.XXXA Exposure to excessive natural cold, initial encounter
CPT/HCPCS: 99282

== ENCOUNTER 2025-09-27 23:29 | Emergency (ER) | payer OTHER, MEDICARE ==
[~2025-09-27] VITALS: Ht 172.7 cm; Wt 67.0 kg
[2025-09-27 23:42] VITALS: BP 119/80; PULSE 82; RESP 18; TEMP 97.7; O2SAT 98
--- NOTE | 2025-09-27 23:50 | Physician Documentation ---
History of Present Illness ~ Stated Complaint: BUG BITE Time Seen by MD: 23:44 Primary Medical Doctor: PIEDAD PENDLETON Patient presents to the ED with a complaint of bedbugs. He states he is homeless and has bites on his body which he believes he incurred due to his sleeping conditions. Denies any itchy scalp or any bugs in his on his scalp, denies any pain or swelling Medication Reconciliation Allergies: Coded Allergies: No Known Allergies (Unverified , 06/18/25) Scheduled Albuterol Sulfate (Proventil Hfa), 2 PUFFS INH Q4H Albuterol Sulfate (Proventil Hfa), 2 PUFFS INH Q4H Benztropine Mesylate (Benztropine Mesylate), 0.5 MG PO Q12H Benztropine Mesylate (Benztropine Mesylate), 1 TABLET PO BID, (Reported) Cephalexin*Monohydrate* (Keflex*), 1 CAP PO QID Citalopram Hydrobromide (Celexa), 10 MG PO DAILY Citalopram Hydrobromide (Celexa), 1 TABLET PO DAILY, (Reported) Divalproex ER* (Depakote ER*), 3 TAB PO HS, (Reported) Divalproex Sodium (Depakote Er), 1,500 MG PO HS Guaifenesin (Mucinex), 1 TAB PO Q12H Hydrocortisone (hydrocortisone 1% cream), 1 APPLIC TOP Q12H Nicotine 21 MG Patch* (Habitrol 21 MG Patch*), 1 PATCH TD DAILY Nicotine 21 MG Patch* (Habitrol 21 MG Patch*), 1 PATCH TD DAILY, (Reported) Oxymetazoline HCl (Afrin), 1 SPRAYS BOTHNARES Q12H Paliperidone Palmitate (Invega Sustenna), 1 SYR IM Q30D, (Reported) Permethrin (Permethrin), 1 APPLIC TOP ONCE Risperidone (Risperidone), 1 TAB PO HS, (Reported) Sulfamethoxazole/Trimethoprim (Bactrim Ds Tablet), 1 TAB PO Q12H Scheduled PRN Ibuprofen (Ibuprofen), 2 TAB PO Q6H PRN for pain Past Medical History Past Medical History: COPD, Extremity Fracture, Bipolar, Schizophrenia Past Surgical History: noncontributory, orthopedic surgeries Patient History: (Cancer) Malignant carcinoid tumor FATHER MOTHER FH: bipolar disorder FH: depression Alcohol Use: Other Drug Use: none Lives with: Alone Lives In: Homeless Occupation: unemployed Review of Systems All Other Systems at this time: Reviewed and Negative ROS As stated above in the HPI, otherwise all systems are reviewed and negative. Physical Exam Physical Exam General: Alert, no apparent distress. HEENT: PERRL, EOMI, no injection, moist mucous membranes. Neurologic: Oriented x4. Psychiatric: Normal mood and affect. Skin: poor hygiene notable bug bites on patient's torso Progress Results/Orders Results/Orders Vital Signs 09/27/25 23:42 Temp 97.7 Pulse 82 Resp 18 B/P (MAP) 119/80 Pulse Ox 98 O2 Flow Rate 0 Medical Decision Making Additional information obtaine: old records Findings Treating empirically with permethrin cream I did advise the patient he will have to either replace or efficiently wash his bedding. Differential Dx:Considerations: Include: Abscess, AIDS/HIV, Anthrax (cutan eous), Atopic dermatitis, Candidiasis, Contact dermatitis, Drug reaction, Erythema multiforme, Erysipelas, Gangrene, Herpes zoster, Herpes simplex, Hidradenitis suppurativa, Impetigo, Intertrigo, Lymes disease, Molluscum contagiosum, Osteomyelitis, Pediculosis, Pityriasis rosea, Psoriaisis, RMSF, Rosacea, Scabies, Scarlet fever, Tinea, Urticaria, Varicella, Viral exanthema, Other Departure Disposition: 01 HOME / SELF CARE / HOMELESS Impression: Primary Impression: Bedbug bite Condition: Stable Discharge Instructions: Bedbugs, [id number] Referrals: NO PRIMARY CARE PROVIDER (PCP) Prescriptions Permethrin 5% Cream* (Elimite 5% Cream*) 60 Gm Cream.gm. 1 APPLIC TOP ONCE, #60 GM massage into skin from head to soles of feet one time, leave on for 8-14 hours then remove by thorough washing Prov: EDUARD DANIELS NP 09/28/25 Education Educated: Patient Educated regarding: diagnosis EDUARD DANIELS NP Sep 27, 2025 23:50
[2025-09-28] MEDS ORDERED: PERM60CR27 TOP (00:03)
[2025-09-28] MEDS ORDERED: Permethrin Cream 60gm TP ONE (00:05)
== END 2025-09-28 00:48 | disposition home or self-care (01) ==
LOC: ER 23:30
DX: S20.369A Insect bite (nonvenomous) of unspecified front wall of thorax, initial encounter (principal); F20.9 Schizophrenia, unspecified; F31.9 Bipolar disorder, unspecified; J44.9 Chronic obstructive pulmonary disease, unspecified; Z59.00 Homelessness unspecified; Z79.899 Other long term (current) drug therapy; Z56.0 Unemployment, unspecified; Z98.890 Other specified postprocedural states; Z60.2 Problems related to living alone; W57.XXXA Bitten or stung by nonvenomous insect and other nonvenomous arthropods, initial encounter; Y93.89 Activity, other specified; Y92.89 Other specified places as the place of occurrence of the external cause; Y99.8 Other external cause status
CPT/HCPCS: 99283